=== PATIENT | male | born 1940 | race Caucasian/White ===

== ENCOUNTER 2016-12-22 06:36 | Emergency (ER) | payer MEDICARE ==
[2016-12-22] MEDS ORDERED: Ondansetron INJ* 2 MG/ML VIAL IV ONE (07:41)
[2016-12-22] MEDS ORDERED: Acetaminophen TAB* 325 MG PO ONE (07:41)
[2016-12-22] MEDS ORDERED: NS 0.9% 1000 ML* 1,000 ML IV SCH (07:45)
[2016-12-22 08:03] LABS: Hematocrit 42 % (42-52); Hemoglobin 14.2 g/dl (14.0-18.0); Mean Corpuscular HGB Conc 34 g/dl (31-36); Mean Corpuscular Hemoglobin 32 pg (27-31); Mean Corpuscular Volume 94 fL (80-94); Mean Platelet Volume 9 um3 (7.4-10.4); Red Blood Count 4.45 10^6/ul (4.0-5.4); Red Cell Distribution Width 13 % (10.5-15)
[2016-12-22 08:04] LABS: Add Diff/Slide Review? Slide Review Added; Comments Flag Yes
--- NOTE | 2016-12-22 08:13 | RAD ---
INDICATION: Headache. COMPARISON: There are no prior studies available for comparison. TECHNIQUE: Contiguous axial sections of the brain were obtained from the skull base to the vertex without contrast. FINDINGS: The ventricles, cisterns and sulci are enlarged consistent with age-related atrophy. There are very small areas of decreased density in the caudate nuclei suggestive of old lacunar infarcts. No other focal abnormality or mass effect is seen. There is no evidence for hemorrhage. No significant focal osseous abnormality is seen. The visualized portion of the paranasal sinuses and mastoid air cells appear clear. IMPRESSION: 1. NO EVIDENCE FOR ACUTE INTRACRANIAL ABNORMALITY. 2. 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
[2016-12-22 08:15] LABS: Albumin 4.1 g/dL (3.2-5.2); BUN/Creatinine Ratio 11.6 (8-20); C Reactive Protein 56.65 mg/L (< 5.00); Calcium 9.2 mg/dL (8.6-10.3); EGFR African American 81.5 (>60); EGFR Non-African American 63.4 (>60); Globulin 2.9 g/dL (2-4); Potassium 4.1 mmol/L (3.5-5.0); Total Bilirubin 0.9 mg/dL (0.2-1.0)
[2016-12-22 08:16] LABS: Troponin I 0.01 ng/mL (<0.04)
[2016-12-22 09:04] LABS: Urine Bacteria Absent (Absent); Urine Bilirubin Negative (Negative); Urine Glucose Negative (Negative); Urine Nitrite Negative (Negative)
[2016-12-22] MEDS ORDERED: Oseltamivir CAP* 75 MG PO ONE (09:48)
--- NOTE | 2016-12-22 09:48 | ED ---
I, Pascual,Bossman, scribed for Darien Sahu MD on 12/22/16 at 0751 . Complex/Multi-Sys Presentation - HPI Summary HPI Summary: This 76 y/o male presents to ED for gradually worsening abd discomfort since 2 days ago and SILVA since yesterday AM. Pt reports he was down in [place] where he consumed "awful looking Caesar salad" for dinner 2 days ago. He started to experience abd dismfort and had x2 BM that night, and woke up with SILVA and nausea the next morning. Positive decreased appetite. Pt decided to visit ED today when pt kept waking up with abd discomfort and SILVA. Abd discomfort is currently resolved at time of initial evaluation, but SILVA still persists and remains chief complaint. APAP and pepcid did little to alleviate SILVA and abd pain. Pt is UTD with flu shot this year. He also reports recent rhinorrhea and coughing, and states that he felt similarly ill to last time he had bronchitis. PMHx includes HTN, HLD, CAD s/p quadruple bypass, and PUD. Plan of care involving CT brain is discussed, and pt is agreeable at this time. Pain med options were discussed with pt, and he states that he does not taking NSAID due to his known PUD. - History Of Current Complaint Chief Complaint: EDGeneral Time Seen by Provider: 12/22/16 07:21 Hx Obtained From: Patient, Medical Records Onset/Duration: Gradual Onset, Still Present Timing: Constant Severity Currently: Mild Severity Initially: Mild Character: Dull Associated Signs And Symptoms: Positive: Nausea, Decreased Oral Intake. Negative: Vomiting, Diarrhea, Dysuria - Allergies/Home Medications Allergies/Adverse Reactions: Allergies Allergy/AdvReac Type Severity Reaction Status Date / Time Omeprazole Allergy Rash And Verified 03/09/16 07:37 Itching PMH/Surg Hx/FS Hx/Imm Hx Cardiovascular History: Reports: Hx Angina, Hx Coronary Artery Disease, Hx Hypercholesterolemia, Hx Hypertension, Hx Valvular Heart Disease - "LEAKY VALVE ", Other Cardiovascular Problems/Disorders - HIGH CHOLESTEROL Respiratory History: Reports: Hx Asthma GI History: Reports: Hx Gall Bladder Disease - pt states it was from an infection from surgery, Hx Gastrointestinal Bleed - current diagnosis, Other GI Disorders - pud History: Reports: Other Problems/Disorders - PROSTATE CA Musculoskeletal History: Reports: Hx Arthritis - bilat feet, Other Musculoskeletal History - RIGHT FOOT TRAUMA Sensory History: Reports: Hx Cataracts - Removed, Hx Contacts or Glasses Denies: Hx Glaucoma, Hx Hearing Aid Opthamlomology History: Reports: Hx Cataracts - Removed, Hx Contacts or Glasses Denies: Hx Glaucoma Neurological History: Reports: Other Neuro Impairments/Disorders - NUMBNESS LEGS BILAT r/t R FOOT SURGERY YRS AGO - Cancer History Cancer Type, Location and Year: Prostate Hx Chemotherapy: No - Surgical History Surgery Procedure, Year, and Place: 17 YRS AGO, RADICAL PROSTATECTOMY- [facility] – [place]. 1976 LEFT INGUINAL HERNIA- [facility]. 39 YRS AGO, 7 COMPOUND FX IN RIGHT FOOT, SURG X 2 WITH SKIN GRAFTS- [facility]. 2009 QUADRUPLE BYPASS- [facility] Anesthesia Reactions: No Infectious Disease History: No Infectious Disease History: Denies: Traveled Outside the US in Last 30 Days - Family History Known Family History: Positive: Other - CVA to father - Social History Occupation: Retired Alcohol Use: Rare Alcohol Amount: 2 drinks per day Hx Substance Use: No Substance Use Type: Reports: None Hx Tobacco Use: No Smoking Status (MU): Never Smoked Tobacco Review of Systems Positive: Cough Positive: Abdominal Pain, Nausea. Negative: Vomiting, Diarrhea Positive: Headache Negative: Anxious, Depressed All Other Systems Reviewed And Are Negative: Yes Physical Exam Triage Information Reviewed: Yes Vital Signs On Initial Exam: Initial Vitals Temp Pulse Resp BP Pulse Ox 99.2 F 93 18 181/81 94 12/22/16 06:43 12/22/16 06:43 12/22/16 06:43 12/22/16 06:43 12/22/16 06:43 Vital Signs Reviewed: Yes Appearance: Positive: No Pain Distress, Ill-Appearing - mildly Skin: Positive: Warm, Skin Color Reflects Adequate Perfusion, Dry Head/Face: Positive: Normal Head/Face Inspection Eyes: Positive: EOMI, DEVIN ENT: Positive: Other - moist oral mucosa Neck: Positive: Supple, Nontender Respiratory/Lung Sounds: Positive: Clear to Auscultation, Breath Sounds Present Cardiovascular: Positive: RRR, Pulses are Symmetrical in both Upper and Lower Extremities Abdomen Description: Positive: Nontender, Soft Bowel Sounds: Positive: Present Musculoskeletal: Positive: Strength/ROM Intact - MAC Neurological: Positive: Sensory/Motor Intact - MAC, Alert, Oriented to Person Place, Time Psychiatric: Positive: Affect/Mood Appropriate AVPU Assessment: Alert - Tamar Coma Scale Coma Scale Total: 15 Diagnostics - Vital Signs Vital Signs Temp Pulse Resp BP Pulse Ox 12/22/16 07:22 100.7 F 12/22/16 07:00 86 173/81 95 12/22/16 06:46 90 95 12/22/16 06:44 181/81 12/22/16 06:43 99.2 F 93 18 181/81 94 - Laboratory Lab Results: Lab Results 12/22/16 12/22/16 12/22/16 Range/Units 07:45 07:45 07:45 WBC 5.0 (3.5-10.8) 10^3/ul RBC 4.45 (4.0-5.4) 10^6/ul Hgb 14.2 (14.0-18.0) g/dl Hct 42 (42-52) % MCV 94 (80-94) fL MCH 32 H (27-31) pg MCHC 34 (31-36) g/dl RDW 13 (10.5-15) % Plt Count 93 L (150-450) 10^3/ul MPV 9 (7.4-10.4) um3 Neut % (Auto) 83.1 H (38-83) % Lymph % (Auto) 7.1 L (25-47) % [place] % (Auto) 8.3 (1-9) % Eos % (Auto) 1.1 (0-6) % Baso % (Auto) 0.4 (0-2) % Absolute Neuts (auto) 4.1 (1.5-7.7) 10^3/ul Absolute Lymphs (auto) 0.4 L (1.0-4.8) 10^3/ul Absolute Monos (auto) 0.4 (0-0.8) 10^3/ul Absolute Eos (auto) 0.1 (0-0.6) 10^3/ul Absolute Basos (auto) 0 (0-0.2) 10^3/ul Absolute Nucleated RBC 0 10^3/ul Nucleated RBC % 0 INR (Anticoag Therapy) 0.94 (0.89-1.11) APTT 30.5 (26.0-36.3) seconds Sodium 134 (133-145) mmol/L Potassium 4.1 (3.5-5.0) mmol/L Chloride 100 L (101-111) mmol/L Carbon Dioxide 30 (22-32) mmol/L Anion Gap 4 (2-11) mmol/L BUN 13 (6-24) mg/dL Creatinine 1.12 (0.67-1.17) mg/dL Est GFR ( Amer) 81.5 (>60) Est GFR (Non-Af Amer) 63.4 (>60) BUN/Creatinine Ratio 11.6 (8-20) Glucose 115 H (70-100) mg/dL Lactic Acid (0.5-2.0) mmol/L Calcium 9.2 (8.6-10.3) mg/dL Total Bilirubin 0.90 (0.2-1.0) mg/dL AST 18 (13-39) U/L ALT 18 (7-52) U/L Alkaline Phosphatase 81 (34-104) U/L Total Creatine Kinase 114 (10-223) U/L CK-MB (CK-2) 2.3 (0.6-6.3) ng/mL Troponin I 0.01 (<0.04) ng/mL C-Reactive Protein 56.65 H (< 5.00) mg/L B-Natriuretic Peptide ( - 100) pg/mL Total Protein 7.0 (6.4-8.9) g/dL Albumin 4.1 (3.2-5.2) g/dL Globulin 2.9 (2-4) g/dL Albumin/Globulin Ratio 1.4 (1-3) Lipase 19 (11.0-82.0) U/L Urine Color Urine Appearance Urine pH (5-9) Ur Specific [place] (1.010-1.030) Urine Protein (Negative) Urine Ketones (Negative) Urine Blood (Negative) Urine Nitrate (Negative) Urine Bilirubin (Negative) Urine Urobilinogen (Negative) Ur Leukocyte Esterase (Negative) Urine WBC (Auto) (Absent) Urine RBC (Auto) (Absent) Urine Bacteria (Absent) Urine Glucose (Negative) Urine Ascorbic Acid (Negative) Influenza A (Rapid) (Negative) Influenza B (Rapid) (Negative) 12/22/16 12/22/16 12/22/16 Range/Units 07:45 07:45 07:57 WBC (3.5-10.8) 10^3/ul RBC (4.0-5.4) 10^6/ul Hgb (14.0-18.0) g/dl Hct (42-52) % MCV (80-94) fL MCH (27-31) pg MCHC (31-36) g/dl RDW (10.5-15) % Plt Count (150-450) 10^3/ul MPV (7.4-10.4) um3 Neut % (Auto) (38-83) % Lymph % (Auto) (25-47) % [place] % (Auto) (1-9) % Eos % (Auto) (0-6) % Baso % (Auto) (0-2) % Absolute Neuts (auto) (1.5-7.7) 10^3/ul Absolute Lymphs (auto) (1.0-4.8) 10^3/ul Absolute Monos (auto) (0-0.8) 10^3/ul Absolute Eos (auto) (0-0.6) 10^3/ul Absolute Basos (auto) (0-0.2) 10^3/ul Absolute Nucleated RBC 10^3/ul Nucleated RBC % INR (Anticoag Therapy) (0.89-1.11) APTT (26.0-36.3) seconds Sodium (133-145) mmol/L Potassium (3.5-5.0) mmol/L Chloride (101-111) mmol/L Carbon Dioxide (22-32) mmol/L Anion Gap (2-11) mmol/L BUN (6-24) mg/dL Creatinine (0.67-1.17) mg/dL Est GFR ( Amer) (>60) Est GFR (Non-Af Amer) (>60) BUN/Creatinine Ratio (8-20) Glucose (70-100) mg/dL Lactic Acid 1.0 (0.5-2.0) mmol/L Calcium (8.6-10.3) mg/dL Total Bilirubin (0.2-1.0) mg/dL AST (13-39) U/L ALT (7-52) U/L Alkaline Phosphatase (34-104) U/L Total Creatine Kinase (10-223) U/L CK-MB (CK-2) (0.6-6.3) ng/mL Troponin I (<0.04) ng/mL C-Reactive Protein (< 5.00) mg/L B-Natriuretic Peptide 231 H ( - 100) pg/mL Total Protein (6.4-8.9) g/dL Albumin (3.2-5.2) g/dL Globulin (2-4) g/dL Albumin/Globulin Ratio (1-3) Lipase (11.0-82.0) U/L Urine Color Urine Appearance Urine pH (5-9) Ur Specific [place] (1.010-1.030) Urine Protein (Negative) Urine Ketones (Negative) Urine Blood (Negative) Urine Nitrate (Negative) Urine Bilirubin (Negative) Urine Urobilinogen (Negative) Ur Leukocyte Esterase (Negative) Urine WBC (Auto) (Absent) Urine RBC (Auto) (Absent) Urine Bacteria (Absent) Urine Glucose (Negative) Urine Ascorbic Acid (Negative) Influenza A (Rapid) Positive H (Negative) Influenza B (Rapid) Negative (Negative) 12/22/16 Range/Units 08:40 WBC (3.5-10.8) 10^3/ul RBC (4.0-5.4) 10^6/ul Hgb (14.0-18.0) g/dl Hct (42-52) % MCV (80-94) fL MCH (27-31) pg MCHC (31-36) g/dl RDW (10.5-15) % Plt Count (150-450) 10^3/ul MPV (7.4-10.4) um3 Neut % (Auto) (38-83) % Lymph % (Auto) (25-47) % [place] % (Auto) (1-9) % Eos % (Auto) (0-6) % Baso % (Auto) (0-2) % Absolute Neuts (auto) (1.5-7.7) 10^3/ul Absolute Lymphs (auto) (1.0-4.8) 10^3/ul Absolute Monos (auto) (0-0.8) 10^3/ul Absolute Eos (auto) (0-0.6) 10^3/ul Absolute Basos (auto) (0-0.2) 10^3/ul Absolute Nucleated RBC 10^3/ul Nucleated RBC % INR (Anticoag Therapy) (0.89-1.11) APTT (26.0-36.3) seconds Sodium (133-145) mmol/L Potassium (3.5-5.0) mmol/L Chloride (101-111) mmol/L Carbon Dioxide (22-32) mmol/L Anion Gap (2-11) mmol/L BUN (6-24) mg/dL Creatinine (0.67-1.17) mg/dL Est GFR ( Amer) (>60) Est GFR (Non-Af Amer) (>60) BUN/Creatinine Ratio (8-20) Glucose (70-100) mg/dL Lactic Acid (0.5-2.0) mmol/L Calcium (8.6-10.3) mg/dL Total Bilirubin (0.2-1.0) mg/dL AST (13-39) U/L ALT (7-52) U/L Alkaline Phosphatase (34-104) U/L Total Creatine Kinase (10-223) U/L CK-MB (CK-2) (0.6-6.3) ng/mL Troponin I (<0.04) ng/mL C-Reactive Protein (< 5.00) mg/L B-Natriuretic Peptide ( - 100) pg/mL Total Protein (6.4-8.9) g/dL Albumin (3.2-5.2) g/dL Globulin (2-4) g/dL Albumin/Globulin Ratio (1-3) Lipase (11.0-82.0) U/L Urine Color Yellow Urine Appearance Clear Urine pH 8.0 (5-9) Ur Specific [place] 1.012 (1.010-1.030) Urine Protein 1+(30 mg/dl) H (Negative) Urine Ketones Trace H (Negative) Urine Blood Negative (Negative) Urine Nitrate Negative (Negative) Urine Bilirubin Negative (Negative) Urine Urobilinogen Negative (Negative) Ur Leukocyte Esterase Negative (Negative) Urine WBC (Auto) Absent (Absent) Urine RBC (Auto) Absent (Absent) Urine Bacteria Absent (Absent) Urine Glucose Negative (Negative) Urine Ascorbic Acid * H (Negative) Influenza A (Rapid) (Negative) Influenza B (Rapid) (Negative) Result Diagrams: 12/22/16 07:45 12/22/16 07:45 Lab Statement: Any lab studies that have been ordered have been reviewed, and results considered in the medical decision making process. - CT Brain CT Interpretation: No Acute Changes - 1. NO EVIDENCE FOR ACUTE INTRACRANIAL ABNORMALITY. 2. 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 CT Interpretation Completed By: Radiologist - Additional Comments Diagnostic Additional Comments: Positive rapid influenza A. Re-Evaluation - Re-Evaluation First Eval Re-Evaluation Time: 09:41 Comment: MD in room to update pt and on rapid flu, bloodwork, and CXR. Complex Multi-Symp Course/Dx Assessment/Plan: WELL IN ED. DISCUSSED RESULTS WITH PATIENT/FAMILY. DISCHARGE HOME STABLE. - Diagnoses Provider Diagnoses: Influenza A Discharge - Discharge Plan Condition: Stable Disposition: HOME Prescriptions: Ondansetron ODT TAB* [Zofran Odt TAB*] 4 mg PO Q6H PRN #10 tab.odt PRN Reason: Nausea Oseltamivir CAP* [Tamiflu CAP*] 75 mg PO BID #9 cap Patient Education Materials: Influenza (ED), Oseltamivir (By mouth), Acetaminophen (By mouth) Referrals: José Miguel Kaufman MD [Primary Care Provider] - Additional Instructions: FOLLOW UP WITH YOUR DOCTOR. RETURN TO THE EMERGENCY DEPARTMENT FOR ANY WORSENING OF YOUR CONDITION OR QUESTIONS OR CONCERNS. The documentation as recorded by the Pascual connell Soohyun accurately reflects the service I personally performed and the decisions made by me, Darien Sahu MD.
[2016-12-22 10:06] VITALS: BP 137/66
== END 2016-12-22 10:14 | disposition home or self-care (01) ==
LOC: ED 06:36
DX: J11.1 Influenza due to unidentified influenza virus with other respiratory manifestations (principal); R11.0 Nausea; R05 Cough; R51 Headache; R10.9 Unspecified abdominal pain
CPT/HCPCS: 36415; 70450; 80053; 81003; 81015; 82550; 82553; 83605; 83690; 83880; 84484; 85025; 85610; 85730; 86140; 87502; 96374; 99283; A9270-GY; J2405

== ENCOUNTER → 2017-03-16 17:13 | Emergency (ER) | payer MEDICARE ==
[2017-03-16 17:30] VITALS: BP 156/87
--- NOTE | 2017-03-16 19:39 | ED ---
Lower Extremity - HPI Summary HPI Summary: Pt here w/ possible bug bite to Rt inner ankle/calf area. Was initially a little itchy - today, red/purple - nonpainful. Believes he was bitten while walking ion tall grass - no witnessed bite nor insect attached to area. Tetanus is UTD. Takes an ASA daily but not as much lately d/t PUD - no issues w/ bleeding/bruising. Denies numbness, tingling, weakness here. No EM rash observed and denies fever, chills, N/V/D, SILVA, chest pain/palpitations, SOB, joint pain. - History of Current Complaint Chief Complaint: EDRashSkinAbscess Stated Complaint: SOME KIND OF BUG BITE Time Seen by Provider: 03/16/17 17:42 Hx Obtained From: Patient, Family/Manager Cafe - female manager access Pain Intensity: 0 Pain Scale Used: 0-10 Numeric - Allergies/Home Medications Allergies/Adverse Reactions: Allergies Allergy/AdvReac Type Severity Reaction Status Date / Time Omeprazole Allergy Rash And Verified 03/09/16 07:37 Itching PMH/Surg Hx/FS Hx/Imm Hx Previously Healthy: Yes Endocrine/Hematology History: Denies: Hx Anticoagulant Therapy - ASA daily, Hx Blood Disorders Cardiovascular History: Reports: Hx Angina, Hx Coronary Artery Disease, Hx Hypercholesterolemia, Hx Hypertension, Hx Valvular Heart Disease - "LEAKY VALVE ", Other Cardiovascular Problems/Disorders - HIGH CHOLESTEROL Respiratory History: Reports: Hx Asthma GI History: Reports: Hx Gall Bladder Disease - pt states it was from an infection from surgery, Hx Gastrointestinal Bleed - current diagnosis, Other GI Disorders - pud History: Reports: Other Problems/Disorders - PROSTATE CA Musculoskeletal History: Reports: Hx Arthritis - bilat feet, Other Musculoskeletal History - RIGHT FOOT TRAUMA Sensory History: Reports: Hx Cataracts - Removed, Hx Contacts or Glasses Denies: Hx Glaucoma, Hx Hearing Aid Opthamlomology History: Reports: Hx Cataracts - Removed, Hx Contacts or Glasses Denies: Hx Glaucoma Neurological History: Reports: Other Neuro Impairments/Disorders - NUMBNESS LEGS BILAT 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 1976 LEFT INGUINAL HERNIA- [facility]. 39 YRS AGO, 7 COMPOUND FX IN RIGHT FOOT, SURG X 2 WITH SKIN GRAFTS- [facility]. 2010 QUADRUPLE BYPASS- [place] Hx Anesthesia Reactions: No Infectious Disease History: No Infectious Disease History: Denies: Traveled Outside the [place] in Last 30 Days - Family History Known Family History: Positive: None, Other - CVA to father - Social History Lives: With Family Alcohol Use: Daily Alcohol Amount: 2 drinks per day Hx Substance Use: No Substance Use Type: Reports: None Hx Tobacco Use: No Smoking Status (MU): Former Smoker Review of Systems Constitutional: Negative Negative: Fever, Chills Cardiovascular: Negative Negative: Palpitations Respiratory: Negative Gastrointestinal: Negative Positive: no symptoms reported Musculoskeletal: Negative Skin: Other - see HPI Neurological: Negative Psychological: Normal All Other Systems Reviewed And Are Negative: Yes Physical Exam Triage Information Reviewed: Yes Vital Signs On Initial Exam: Initial Vitals Temp Pulse Resp BP Pulse Ox 98.4 F 74 18 156/87 97 03/16/17 17:27 03/16/17 17:27 03/16/17 17:27 03/16/17 17:27 03/16/17 17:27 Vital Signs Reviewed: Yes Appearance: Positive: Well-Appearing, No Pain Distress, Well-Nourished Skin: Positive: Warm, Dry - 3cm area of macular purpura w/ central induration about 1cm in diameter - very center of skin abnormality is w/ 3mm raised papule w/ central pinpoint darkness (possibly entry wound/bite guru) - peripheral tissue is some what less purple and then dark again just beyond this - not a abdoulaye EM rash but could be early development? No abdoulaye ulceration, eschar, oozing, drainage or fluctuance - NTTP Head/Face: Positive: Normal Head/Face Inspection Eyes: Positive: Normal ENT: Positive: Hearing grossly normal Respiratory/Lung Sounds: Positive: Breath Sounds Present Cardiovascular: Positive: Normal, Pulses are Symmetrical in both Upper and Lower Extremities. Negative: Leg Edema Left, Leg Edema Right Musculoskeletal: Positive: Normal, Strength/ROM Intact Neurological: Positive: Normal, Sensory/Motor Intact, Alert, Oriented to Person Place, Time, CN Intact II-III Psychiatric: Positive: Normal Diagnostics - Vital Signs Vital Signs Temp Pulse Resp BP Pulse Ox 03/16/17 17:27 98.4 F 74 18 156/87 97 - Laboratory Lab Statement: Any lab studies that have been ordered have been reviewed, and results considered in the medical decision making process. Lower Extremity Course/Dx - Course Course Of Treatment: Discussed this abnormal skin discoloration could have been an insect bite. Of an insect bite, most dangerous scenarios would be a tick carrying Lyme or a brown recluse spider. He will start doxycycline to cover for Lyme and f/u w/ PCP. Discussed importance of monitoring wound for abdoulaye EM rash or evolution into a brown recluse spider bite and advised to seek medical attention immediately if either of these present. May also take pictures to document. Pt and were an active part of this plan and agree. - Diagnoses Provider Diagnoses: Rash Discharge - Discharge Plan Condition: Stable Disposition: HOME Prescriptions: DOXYcycline CAP(*) [DOXYcycline 100MG CAP(*)] 100 mg PO BID #20 cap Patient Education Materials: Lyme Disease (ED), Acute Rash (ED) Referrals: José Miguel Kaufman MD [Primary Care Provider] - Additional Instructions: You have a rash today that may possibly be from a tick bite and early signs of bulls eye rash (aka erythema migrans rash). Start antibiotics and follow-up with your PCP early next week. Call Saturday to schedule an appointment. *If you develop an obvious bulls eye rash over the weekend, return to a medical facility for documentation and/or take a picture to show PCP next week *If you develop skin breakdown, oozing, black skin here, this may be a brown recluse spider bite. Again, follow-up with a medical facility if this occurs.
== END | disposition home or self-care (01) ==
LOC: ED 17:13
DX: R21 Rash and other nonspecific skin eruption (principal); I25.119 Atherosclerotic heart disease of native coronary artery with unspecified angina pectoris; I10 Essential (primary) hypertension; E78.00 Pure hypercholesterolemia, unspecified; Z87.891 Personal history of nicotine dependence
CPT/HCPCS: 99281

== ENCOUNTER 2017-04-06 19:35 | Inpatient (IN) | payer MEDICARE ==
[2017-04-06] MEDS ORDERED: NS 0.9% 1000 ML* 1,000 ML IV ONE (20:06)
[2017-04-06] MEDS ORDERED: Ondansetron INJ* 2 MG/ML VIAL IV ONE (20:07)
[2017-04-06] MEDS ORDERED: Morphine INJ* 4 MG/ML 1 ML SYRINGE IV ONE (20:07)
[2017-04-06 20:23] LABS: Hematocrit 42 % (42-52); Hemoglobin 13.9 g/dl (14.0-18.0); Mean Corpuscular HGB Conc 33 g/dl (31-36); Mean Corpuscular Hemoglobin 31 pg (27-31); Mean Corpuscular Volume 94 fL (80-94); Mean Platelet Volume 9 um3 (7.4-10.4); Red Blood Count 4.48 10^6/ul (4.0-5.4); Red Cell Distribution Width 13 % (10.5-15); White Blood Count 4.6 10^3/ul (3.5-10.8)
[2017-04-06 20:38] LABS: Albumin 4.2 g/dL (3.2-5.2); BUN/Creatinine Ratio 19.1 (8-20); C Reactive Protein 1.68 mg/L (< 5.00); Calcium 9.3 mg/dL (8.6-10.3); EGFR African American 83.3 (>60); EGFR Non-African American 64.7 (>60); Globulin 2.6 g/dL (2-4); Magnesium 2.2 mg/dL (1.9-2.7); Potassium 4.5 mmol/L (3.5-5.0); Total Bilirubin 2.6 mg/dL (0.2-1.0); Total Protein 6.8 g/dL (6.4-8.9)
[2017-04-06] MEDS ORDERED: Iohexol 300* (CONTRAST) 10 ML SDV IV ONE (20:56)
--- NOTE | 2017-04-06 22:11 | RAD ---
HISTORY: Epigastric pain with elevated LFTs. COMPARISONS: None TECHNIQUE: Multiple transverse and longitudinal ultrasound images were obtained of the right upper quadrant. FINDINGS: LIVER: The liver is normal in dimensions and echogenicity. Normal hepatic and portal venous blood flow is duplicated with color flow imaging. There is no gross intrahepatic biliary duct dilatation. GALLBLADDER AND EXTRAHEPATIC BILIARY DUCT: There are shadowing echogenic stones at the gallbladder neck. The gallbladder wall is top normal in thickness measuring 3 mm. There is trace pericholecystic fluid. The common bile duct measures a maximum diameter of 9 mm. PANCREAS: Overlying bowel gas prevents adequate imaging of the pancreas. RIGHT KIDNEY: The right kidney is normal in size, morphology and echogenicity. IMPRESSION: CHOLELITHIASIS WITH A MILDLY DILATED COMMON BILE DUCT AND TRACE PERICHOLECYSTIC FLUID. IN THE CORRECT CLINICAL SETTING THESE SONOGRAPHIC FEATURES COULD BE COMPATIBLE WITH EARLY OBSTRUCTIVE CHOLECYSTITIS. IF CLINICALLY WARRANTED FURTHER CHARACTERIZATION CAN BE ACQUIRED WITH HIDA SCAN.
--- NOTE | 2017-04-06 23:09 | ED ---
Ollie Yuan Aidan, scribed for Lucy Noble MD on 04/06/17 at 2050 . Abdominal Pain/Male - HPI Summary HPI Summary: 76 y/o male presents to the ED with a complaint of acute, [id number] ( at times reaching 9/10), epigastric pain that has persisted intermittently for the past 3 days. This morning, he woke up with an episode of pain that persisted for roughly 6 hours. The pain is described as a similar pain to what he experiences when he has reflux. Currently, he is asymptomatic. Pt denies any vomiting, nausea, diarrhea, constipation, CP, or SOB. He also denies being on any blood thinners. Hx of peptic ulcer bleed without associated pain, HTN, reflux, quadruple bypass 6 years ago, hyperlipidemia, and prostate CA. - History of Current Complaint Chief Complaint: EDAbdPain Stated Complaint: UPPER ABD PAIN Time Seen by Provider: 04/06/17 19:46 Hx Obtained From: Patient Onset/Duration: Sudden Onset, Lasting Hours - one of his episodes today lasted 6 hours, Resolved - Pt is currently asymptomatic Timing: Intermittent, Lasting Hours Severity Initially: Severe Severity Currently: Mild Pain Intensity: 0 - Currently the patient is not in much pain, however, his abdominal pain can reach 9/10 Pain Scale Used: 0-10 Numeric Location: Epigastric Radiates: No Character: Sharp Aggravating Factor(s): Other: - unknown Alleviating Factor(s): Other: - unknown Associated Signs And Symptoms: Positive: Negative - Allergies/Home Medications Allergies/Adverse Reactions: Allergies Allergy/AdvReac Type Severity Reaction Status Date / Time Omeprazole Allergy Rash And Verified 03/09/16 07:37 Itching PMH/Surg Hx/FS Hx/Imm Hx Previously Healthy: No - Hx of Prostste CA, reflux Endocrine/Hematology History: Denies: Hx Anticoagulant Therapy - ASA daily, Hx Blood Disorders Cardiovascular History: Reports: Hx Angina, Hx Coronary Artery Disease, Hx Hypercholesterolemia, Hx Hypertension, Hx Valvular Heart Disease - "LEAKY VALVE ", Other Cardiovascular Problems/Disorders - HIGH CHOLESTEROL Respiratory History: Reports: Hx Asthma GI History: Reports: Hx Gall Bladder Disease - pt states it was from an infection from surgery, Hx Gastrointestinal Bleed - current diagnosis, Other GI Disorders - pud History: Reports: Other Problems/Disorders - PROSTATE CA Musculoskeletal History: Reports: Hx Arthritis - bilat feet, Other Musculoskeletal History - RIGHT FOOT TRAUMA Sensory History: Reports: Hx Cataracts - Removed, Hx Contacts or Glasses Denies: Hx Glaucoma, Hx Hearing Aid Opthamlomology History: Reports: Hx Cataracts - Removed, Hx Contacts or Glasses Denies: Hx Glaucoma Neurological History: Reports: Other Neuro Impairments/Disorders - NUMBNESS LEGS BILAT r/t R FOOT SURGERY YRS AGO - Cancer History Cancer Type, Location and Year: Prostate Hx Chemotherapy: No - Surgical History Surgery Procedure, Year, and Place: 17 YRS AGO, RADICAL PROSTATECTOMY- [facility] – [place]. 1976 LEFT INGUINAL HERNIA- [facility]. 39 YRS AGO, 7 COMPOUND FX IN RIGHT FOOT, SURG X 2 WITH SKIN GRAFTS- [facility]. 2009 QUADRUPLE BYPASS- [facility] Anesthesia Reactions: No Infectious Disease History: No Infectious Disease History: Denies: Traveled Outside the [place] in Last 30 Days - Family History Known Family History: Positive: Cardiac Disease, Hypertension, Other - CVA to father - Social History Occupation: Retired Lives: With Family Alcohol Use: Daily Alcohol Amount: 2 drinks per day Hx Substance Use: No Substance Use Type: Reports: None Hx Tobacco Use: No Smoking Status (MU): Former Smoker Review of Systems Constitutional: Negative Eyes: Negative ENT: Negative Cardiovascular: Negative Respiratory: Negative Positive: Abdominal Pain. Negative: Vomiting, Diarrhea, Nausea Genitourinary: Negative Musculoskeletal: Negative Skin: Negative Neurological: Negative Psychological: Normal All Other Systems Reviewed And Are Negative: Yes Physical Exam - Summary Physical Exam Summary: General: Well appearing, no pain distress Skin: Warm, Skin Color Reflects Adequate Perfusion, Dry Eyes: EOMI, DEVIN ENT: Pharynx normal, TMs normal Neck: Supple, nontender Respiratory: CTA, breath sounds present, no rhonchi, no wheezes, no rales Cardiovascular: RRR, no murmur, no rub, no gallop Abdomen: Soft, Non-distended, no guarding, no rebound; POSITIVE: RUQ and epigastric tenderness Bowel: Present Musculoskeletal: ARIC, No edema Neuro: Sensory/motor intact, A&Ox3, CN intact 2-12 Psych: Affect/mood appropriate Triage Information Reviewed: Yes Vital Signs On Initial Exam: Initial Vitals Temp Pulse Resp BP Pulse Ox 97.3 F 66 18 168/88 100 04/06/17 19:35 04/06/17 19:35 04/06/17 19:35 04/06/17 19:35 04/06/17 19:35 Vital Signs Reviewed: Yes - [place] Coma Scale Coma Scale Total: 15 Diagnostics - Vital Signs Vital Signs Temp Pulse Resp BP Pulse Ox 04/06/17 20:31 16 04/06/17 20:18 97.3 F 58 16 177/91 98 04/06/17 19:35 97.3 F 66 18 168/88 100 - Laboratory Lab Results: Lab Results 04/06/17 04/06/17 04/06/17 Range/Units 20:14 20:14 20:14 WBC 4.6 (3.5-10.8) 10^3/ul RBC 4.48 (4.0-5.4) 10^6/ul Hgb 13.9 L (14.0-18.0) g/dl Hct 42 (42-52) % MCV 94 (80-94) fL MCH 31 (27-31) pg MCHC 33 (31-36) g/dl RDW 13 (10.5-15) % Plt Count 126 L (150-450) 10^3/ul MPV 9 (7.4-10.4) um3 Neut % (Auto) 63.4 (38-83) % Lymph % (Auto) 22.8 L (25-47) % [place] % (Auto) 7.3 (1-9) % Eos % (Auto) 6.1 H (0-6) % Baso % (Auto) 0.4 (0-2) % Absolute Neuts (auto) 2.9 (1.5-7.7) 10^3/ul Absolute Lymphs (auto) 1.0 (1.0-4.8) 10^3/ul Absolute Monos (auto) 0.3 (0-0.8) 10^3/ul Absolute Eos (auto) 0.3 (0-0.6) 10^3/ul Absolute Basos (auto) 0 (0-0.2) 10^3/ul Absolute Nucleated RBC 0 10^3/ul Nucleated RBC % 0.1 Sodium 138 (133-145) mmol/L Potassium 4.5 (3.5-5.0) mmol/L Chloride 105 (101-111) mmol/L Carbon Dioxide 29 (22-32) mmol/L Anion Gap 4 (2-11) mmol/L BUN 21 (6-24) mg/dL Creatinine 1.10 (0.67-1.17) mg/dL Est GFR ( Amer) 83.3 (>60) Est GFR (Non-Af Amer) 64.7 (>60) BUN/Creatinine Ratio 19.1 (8-20) Glucose 93 (70-100) mg/dL Lactic Acid 0.9 (0.5-2.0) mmol/L Calcium 9.3 (8.6-10.3) mg/dL Magnesium 2.2 (1.9-2.7) mg/dL Total Bilirubin 2.60 H (0.2-1.0) mg/dL AST 683 H (13-39) U/L ALT Pending Alkaline Phosphatase 178 H (34-104) U/L Troponin I 0.00 (<0.04) ng/mL C-Reactive Protein 1.68 (< 5.00) mg/L Total Protein 6.8 (6.4-8.9) g/dL Albumin 4.2 (3.2-5.2) g/dL Globulin 2.6 (2-4) g/dL Albumin/Globulin Ratio 1.6 (1-3) Amylase 40 (29-103) U/L Lipase 41 (11.0-82.0) U/L Result Diagrams: 04/06/17 20:14 04/06/17 20:14 Lab Statement: Any lab studies that have been ordered have been reviewed, and results considered in the medical decision making process. - EKG EKG 2011 Cardiac Rate: NL - 61 BPM EKG Rhythm: Sinus Rhythm EKG Interpretation: NONSPECIFIC T-WAVE CHANGES, SAME EKG ON 03/09/16 Abdominal Pain Fem Course/Dx - Course Course Of Treatment: 76 yo male with likely common bile duct stone, case discussed with Seven Richey and with Tobias who felt given a normal wbc he could wait to have an ercp in house on Saturday when Dr. Escoto was available to do the procedure. Pt is actually quite well appearing and has no pain at this time - Diagnoses Provider Diagnoses: Common bile duct stone Discharge - Discharge Plan Condition: Stable Disposition: ADMITTED TO [facility] The documentation as recorded by the Ollie connell Aidan accurately reflects the service I personally performed and the decisions made by , Lucy Noble MD.
[2017-04-07] MEDS ORDERED: Ondansetron INJ* 2 MG/ML VIAL IV PRN (00:05)
[2017-04-07] MEDS ORDERED: Acetaminophen TAB* 325 MG PO PRN (00:08)
[2017-04-07] MEDS ORDERED: Thiamine IV* 100 MG/ML 2 ML VIAL IM ONE (00:08)
[2017-04-07] MEDS ORDERED: Senna TAB PO PRN (00:10)
[2017-04-07] MEDS ORDERED: Docusate CAP* 100 MG PO PRN (00:10)
[2017-04-07] MEDS ORDERED: Zosyn per Pharmacy* NOTE FOLLOW UP SCH (01:00)
[2017-04-07] MEDS ORDERED: LORazepam INJ* 2 MG/ML 1 ML VIAL IV SCH (01:00)
--- NOTE | 2017-04-07 02:08 | HP ---
HISTORY AND PHYSICAL: ADDENDUM: ASSESSMENT AND PLAN: Early obstructive cholecystitis. As mentioned, we will follow up with GI in the morning and repeat his labs and continue him on antibiotics. Chronic medical problems. The patient did not have his medications list. I will recommend nurse call the pharmacy in the morning to get his med rec. We will continue him on his famotidine and metoprolol. FEN. Placed him on IV fluids with sips of clear. DVT prophylaxis. The patient scores high risk. Placed him on heparin subcu t.i.d. Code status: Full code. PATIENT TIME: Greater than 70 minutes were spent doing the history and physical , more than half the time was spent in patient contact. [id number]/[facility] #: [id number] AN
[2017-04-07] MEDS: ZOSYN 3.375 GM Q8H per EXTENDED INFUSION IVPB SCH ×6 (03:51→19:30)
[2017-04-07] MEDS: Heparin VIAL(*) 5000 UNITS/ML VIAL (FIVE THOUSAND) SUBCUT SCH ×3 (05:55→22:09)
--- NOTE | 2017-04-07 06:08 | HP ---
CC: José Miguel Kaufman MD HISTORY AND PHYSICAL: DATE OF ADMISSION: 04/07/17 TIME OF EVALUATION: 0000. PRIMARY CARE PHYSICIAN: José Miguel Kaufman MD CHIEF COMPLAINT: Epigastric abdominal pain. HISTORY OF PRESENT ILLNESS: This is a 76-year-old male with a past medical history of peptic ulcer disease and alcohol use, who presents to the emergency room with worsening persistent abdominal pain. The patient states he has had ongoing intermittent epigastric pains for a while that waxes and wanes. His pain has gotten worse over the past 3 days. Last evening, his pain was bad, he started driving here to the emergency room and on the way here, it got better, he turned around and came home. Today, his epigastric pain was not improved. He has some nausea, no vomiting. He felt warm today. No diarrhea or constipation. He has had decreased appetite over the past 3 days. He denies any chest pain or shortness of breath. In the emergency room, the patient had labs, imaging, and there was findings concerning of early acute possibly obstructive cholecystitis. The patient does admit to drinking alcohol. He says he has 2 drinks per day and couple of times a week he goes up to 3 to 4 glasses per day. He states he is very active. He does 200 steps a day. Otherwise, remaining review of systems is negative. In the emergency room, the patient had labs, imaging. He was given 1 liter of normal saline, morphine 4 mg and Zofran and referred to the hospitalist service for further evaluation. On my encounter, the patient is no longer having any pain. He states he feels great. As mentioned, the patient felt that this pain was likely secondary to his peptic ulcer disease, which he states flares up off and on, waxing and waning without any specific pattern. PAST MEDICAL HISTORY: 1. Peptic ulcer disease. 2. History of coronary artery disease, status post bypass in 2010. 3. History of prostate cancer, status post prostatectomy. 4. History of GI bleed. 5. Hypertension. 6. Hyperlipidemia. 7. Arthritis. MEDICATIONS: The patient does not have the list with him, his took his wallet home. He states he no longer takes omeprazole. He was switched to Pepcid. ALLERGIES: As mentioned, OMEPRAZOLE, rash and itching. FAMILY HISTORY: Father from CVA. SOCIAL HISTORY: The patient lives at home with his . He has 4 grown stepchildren. His , Celestina Vick, is his healthcare proxy. He quit smoking 48 years ago. He has been drinking for 50 years, as mentioned, 2 to 4 glasses of alcohol per day. CODE STATUS: Full code. REVIEW OF SYSTEMS: As mentioned in the HPI. PHYSICAL EXAMINATION GENERAL: No acute distress, resting comfortably. VITAL SIGNS: Temp is 97.3, pulse rate 58, respiratory rate 17, oxygen saturation 95% on room air, blood pressure 129/75. HEENT: Pupils are equal and reactive. Anicteric. Head: Normocephalic. Oropharynx: Mucous membranes are moist. No erythema or exudate. NECK: Supple. No lymphadenopathy. RESPIRATORY: Clear to auscultation. No wheezing, rhonchi, or rales. CARDIAC: Regular rate and rhythm. Systolic murmur heard most prominent at the right sternal base. ABDOMEN: Normal bowel sounds, soft, nontender, nondistended. EXTREMITIES: No clubbing, cyanosis, or edema. NEUROLOGIC: Alert and oriented x3. No focal neurologic deficits. DIAGNOSTIC STUDIES/LAB DATA: White count 4.6, hemoglobin 13.9, hematocrit 42, platelets 126. Sodium 138, potassium 4.5, chloride 105, bicarb 29, BUN 21, creatinine 1.10. Lactic acid 0.9. Total bilirubin 2.6, AST 683, ALT 616, alk phos 178. Troponin 0. CRP 1.68. Radiographic data: Gallbladder ultrasound shows cholelithiasis and mildly dilated common bile duct and trace pericholecystic fluid. In the clinical setting, these sonographic features could be compatible with early obstructive cholecystitis. EKG shows normal sinus rhythm with prolonged IA interval, nonspecific ST findings. ASSESSMENT: This is a 76-year-old male with a past medical history of peptic ulcer disease, alcohol use, who presents to the emergency room with persistent worsening epigastric pain, found to have radiographic findings of early obstructive cholecystitis. 1. Epigastric pain. Assessment: Findings with his elevated LFTs and early obstructive cholecystitis, Dr. Collado is on-call, who recommended over an admission and if necessary Dr. Escoto can do an ERCP on the . We will start him on Zosyn and place him on n.p.o. with sips of clears. Repeat labs in AM and follow up with GI Chronic medical problems. The patient did not have his medications list. I will recommend nurse call the pharmacy in the morning to get his med rec. We will continue him on his famotidine and metoprolol. FEN. Placed him on IV fluids with sips of clear. DVT prophylaxis. The patient scores high risk. Placed him on heparin subcu t.i.d. Code status: Full code. PATIENT TIME: Greater than 70 minutes were spent doing the history and physical , more than half the time was spent in patient contact. [id number]/[facility] #: [id number] MTDD
[2017-04-07] MEDS: Thiamine TAB* 100 MG TAB PO SCH (08:21)
[2017-04-07] MEDS: Folic Acid TAB* 1 MG PO SCH (08:21)
[2017-04-07] MEDS: Famotidine TAB* 20 MG PO SCH ×2 (08:21→21:03)
[2017-04-07] MEDS: Multivitamins/Minerals TAB PO SCH (08:21)
[2017-04-07] MEDS: Metoprolol Succinate XL TAB* 25 MG PO SCH (08:22)
[2017-04-07 08:37] LABS: Hematocrit 38 % (42-52); Hemoglobin 12.7 g/dl (14.0-18.0); Mean Corpuscular HGB Conc 34 g/dl (31-36); Mean Corpuscular Hemoglobin 32 pg (27-31); Mean Corpuscular Volume 94 fL (80-94); Mean Platelet Volume 10 um3 (7.4-10.4); Red Blood Count 4.01 10^6/ul (4.0-5.4); Red Cell Distribution Width 13 % (10.5-15); White Blood Count 3.6 10^3/ul (3.5-10.8)
[2017-04-07] MEDS: Morphine INJ* 2 MG/ML 1 ML SYRINGE IV PRN (08:38)
[2017-04-07 08:55] LABS: Albumin 3.5 g/dL (3.2-5.2); Calcium 8.5 mg/dL (8.6-10.3); EGFR African American 92.9 (>60); EGFR Non-African American 72.3 (>60); Globulin 2.4 g/dL (2-4); Total Bilirubin 3.7 mg/dL (0.2-1.0); Total Protein 5.9 g/dL (6.4-8.9)
--- NOTE | 2017-04-07 12:30 | CONS ---
CC: Dr. José Miguel Kaufman * CONSULTATION REPORT: DATE OF CONSULT: 04/07/17 REASON FOR CONSULTATION: Epigastric pain, abnormal liver function tests. NARRATIVE: This is a 76-year-old gentleman presenting with epigastric pain radiating to both flanks intermittently for the last 4 weeks. He first noticed this about a month ago, was self-limited, but has recurred through the last month intermittently. He had a more significant attack in the last couple of days that was unrelenting and for that reason, presented to the emergency room. He appeared hemodynamically stable. His pain was controlled with morphine, and he proceeded to get studies including laboratory studies demonstrating a total bilirubin of 2.6, an ALT of 616, an AST of 683, a lipase of 41. He did undergo imaging with a gallbladder ultrasound, which did demonstrate cholelithiasis with a trace of pericholecystic fluid. The gallbladder was 3 mm and the common bile duct was slightly dilated at 9 mm. He was admitted overnight. His pain has been well controlled with intermittent use of morphine. His followup laboratory data this morning demonstrated a rise in his bilirubin to 3.7, but a reduction in his ALT to 515 and his AST to 404. He has not demonstrated any fevers and has been covered with Zosyn. He has no prior history of gallbladder disease, but does have a GI history consistent with peptic ulcer disease from a year ago requiring an upper endoscopy. He has been maintained on Pepcid since then. PAST MEDICAL HISTORY: Includes coronary artery disease status post bypass surgery about 6 years ago, history of prostate cancer status post prostatectomy , hypertension, hyperlipidemia, arthritis, and valvular heart disease that is being monitored. MEDICATIONS: His ambulatory medicines are: 1. Baby aspirin. 2. Pepcid. 3. Lasix. 4. Lisinopril. 5. Metoprolol. 6. Amlodipine. FAMILY HISTORY: Negative for gallbladder disease. HABITS: The patient does describe chronic regular alcohol consumption, usually 2 glasses of wine at night and at times more, and sometimes hard liquor such as scotch. REVIEW OF SYSTEMS: He denies any jaundice, pruritus, fevers, or chills. He has had no GI bleeding or weight loss. PHYSICAL EXAM: He is a pleasant gentleman, appearing comfortable in no acute distress. Temperature is 97.5, blood pressure 168/75, heart rate 51 and regular. He is anicteric. Lungs are clear. Cardiac exam reveals a regular rhythm with a systolic murmur. Abdomen is soft without any tenderness currently , rebound or guarding. There is no organomegaly or Saini sign. Bowel sounds are hypoactive but present. LABORATORY DATA: Additional data includes creatinine of 1, lactic acid of 0.9, white count of 3.6, hemoglobin of 12.7. IMPRESSION: This is a 76-year-old gentleman with history of coronary artery disease status post by pass surgery, chronic regular alcohol consumption, as well as a remote history of peptic ulcer disease, presenting with intermittent epigastric pain and abnormal liver function tests. His imaging does demonstrate cholelithiasis, perhaps acute cholecystitis or common bile duct stone. We discussed these possible causes for his pain carefully. I will proceed with an MRCP tomorrow morning to document if there is any evidence of choledocholithiasis. If that demonstrates common bile duct stone and/or his bilirubin continues to rise, then I do believe an ERCP would be the next step and that was discussed with him as well. If not, he likely could proceed with a laparoscopic cholecystectomy. Clear liquids should be continued as well as the Zosyn. I wrote for the MRCP, as well as a repeat liver panel in the morning. [id number]/[facility] #: [id number] [facility]IT[facility]
--- NOTE | 2017-04-07 14:28 | PN ---
Subjective Date of Service: 04/07/17 Interval History: Pt has no pain since he was tx with IV morphine. Seen by Dr. Collado today Objective Active Medications: Acetaminophen (Tylenol Tab*) 650 mg PO Q4H PRN PRN Reason: PAIN Docusate Sodium (Colace Cap*) 100 mg PO BID PRN PRN Reason: CONSTIPATION Famotidine (Pepcid Tab*) 20 mg PO BID [facility] Last Admin: 04/07/17 08:21 Dose: 20 mg Folic Acid (Folvite Tab*) 1 mg PO DAILY [facility] Last Admin: 04/07/17 08:21 Dose: 1 mg Heparin Sodium (Porcine) (Heparin Vial(*)) 5,000 units SUBCUT Q8HR [facility] Last Admin: 04/07/17 05:55 Dose: 5,000 units Sodium Chloride (Ns 0.9% 1000 Ml*) 1,000 mls @ 125 mls/hr IV PER RATE [facility] Piperacillin Sod/Tazobactam (Sod 3.375 gm/ Sodium Chloride) 100 mls @ 25 mls/ hr IVPB Q8H [facility] Last Admin: 04/07/17 12:50 Dose: 25 mls/hr Lorazepam (Ativan Inj*) 0 mg IV .PER WAM SCORE [facility] PRN Reason: Protocol Metoprolol Succinate (Toprol Xl Tab*) 25 mg PO DAILY [facility] Last Admin: 04/07/17 08:22 Dose: 25 mg Morphine Sulfate (Morphine Inj (Syringe)*) 2 mg IV Q4H PRN PRN Reason: PAIN Last Admin: 04/07/17 08:38 Dose: 2 mg Multivitamins/Minerals (Theragran/Minerals Tab*) 1 tab PO DAILY [facility] Last Admin: 04/07/17 08:21 Dose: 1 tab Ondansetron HCl (Zofran Inj*) 4 mg IV Q4H PRN PRN Reason: NAUSEA/VOMITING Pharmacy Consult (Zosyn Per Pharmacy*) 1 note FOLLOW UP .ZOSYN PER PHARMACY [facility] Senna (Senokot Tab*) 1 tab PO BEDTIME PRN PRN Reason: CONSTIPATION Thiamine HCl (Vitamin B-1 Tab*) 100 mg PO DAILY [facility] Last Admin: 04/07/17 08:21 Dose: 100 mg Vital Signs 04/07/17 04/07/17 04/07/17 00:29 01:00 01:14 Temperature 98 F 97.6 F Pulse Rate 54 61 Respiratory 16 15 16 Rate Blood Pressure 179/75 187/80 (mmHg) O2 Sat by Pulse 95 Oximetry 04/07/17 04/07/17 04/07/17 03:48 07:29 08:25 Temperature 97.6 F 97.5 F Pulse Rate 52 51 Respiratory 16 16 16 Rate Blood Pressure 140/66 168/75 (mmHg) O2 Sat by Pulse 100 97 Oximetry 04/07/17 04/07/17 04/07/17 08:38 09:38 10:09 Temperature 97.7 F Pulse Rate 50 Respiratory 16 16 16 Rate Blood Pressure 141/66 (mmHg) O2 Sat by Pulse 98 Oximetry 04/07/17 12:03 Temperature 97.5 F Pulse Rate 48 Respiratory 16 Rate Blood Pressure 149/77 (mmHg) O2 Sat by Pulse 97 Oximetry Oxygen Devices in Use Now: None Appearance: 76 yo M in nAD, aAOx3 Eyes: No Scleral Icterus, PERRLA Ears/Nose/Mouth/Throat: NL Teeth, Lips, Gums, Mucous Membranes Moist Neck: NL Appearance and Movements; NL JVP, Trachea Midline Respiratory: Symmetrical Chest Expansion and Respiratory Effort, Clear to Auscultation Cardiovascular: NL Sounds; No Murmurs; No JVD, RRR Abdominal: NL Sounds; No Tenderness; No Distention, No Hepatosplenomegaly Lymphatic: No Cervical Adenopathy Extremities: No Edema, No Clubbing, Cyanosis Skin: No Rash or Ulcers, No Nodules or Sclerosis Neurological: Alert and Oriented x 3, NL Muscle Strength and Tone Result Diagrams: 04/07/17 07:27 04/07/17 07:27 Additional Lab and Data: Lab Results 04/06/17 04/06/17 04/06/17 Range/Units 20:14 20:14 20:14 WBC 4.6 (3.5-10.8) 10^3/ul RBC 4.48 (4.0-5.4) 10^6/ul Hgb 13.9 L (14.0-18.0) g/dl Hct 42 (42-52) % MCV 94 (80-94) fL MCH 31 (27-31) pg MCHC 33 (31-36) g/dl RDW 13 (10.5-15) % Plt Count 126 L (150-450) 10^3/ul MPV 9 (7.4-10.4) um3 Neut % (Auto) 63.4 (38-83) % Lymph % (Auto) 22.8 L (25-47) % [place] % (Auto) 7.3 (1-9) % Eos % (Auto) 6.1 H (0-6) % Baso % (Auto) 0.4 (0-2) % Absolute Neuts (auto) 2.9 (1.5-7.7) 10^3/ul Absolute Lymphs (auto) 1.0 (1.0-4.8) 10^3/ul Absolute Monos (auto) 0.3 (0-0.8) 10^3/ul Absolute Eos (auto) 0.3 (0-0.6) 10^3/ul Absolute Basos (auto) 0 (0-0.2) 10^3/ul Absolute Nucleated RBC 0 10^3/ul Nucleated RBC % 0.1 Sodium 138 (133-145) mmol/L Potassium 4.5 (3.5-5.0) mmol/L Chloride 105 (101-111) mmol/L Carbon Dioxide 29 (22-32) mmol/L Anion Gap 4 (2-11) mmol/L BUN 21 (6-24) mg/dL Creatinine 1.10 (0.67-1.17) mg/dL Est GFR ( Amer) 83.3 (>60) Est GFR (Non-Af Amer) 64.7 (>60) BUN/Creatinine Ratio 19.1 (8-20) Glucose 93 (70-100) mg/dL Lactic Acid 0.9 (0.5-2.0) mmol/L Calcium 9.3 (8.6-10.3) mg/dL Magnesium 2.2 (1.9-2.7) mg/dL Total Bilirubin 2.60 H (0.2-1.0) mg/dL AST 683 H (13-39) U/L ALT Pending Alkaline Phosphatase 178 H (34-104) U/L Troponin I 0.00 (<0.04) ng/mL C-Reactive Protein 1.68 (< 5.00) mg/L Total Protein 6.8 (6.4-8.9) g/dL Albumin 4.2 (3.2-5.2) g/dL Globulin 2.6 (2-4) g/dL Albumin/Globulin Ratio 1.6 (1-3) Amylase 40 (29-103) U/L Lipase 41 (11.0-82.0) U/L Assess/Plan/Problems-Billing Assessment: 76 yo M with h/o ETOH abuse, CABG, HTN, GERD presents with RUQ abd pain - Patient Problems (1) Cholecystitis, acute with cholelithiasis Comment: CBD at 0.9 cm and possible obstruction cont Zosyn CT and US reviewed. LFT's still increasing, although pain is controlled Plan for MRCP, poss ERCP in AM Appreciated GI consult, Dr. Richey consulted cont NPO, IVF (2) Gastric ulcer Comment: in 2016, cont Pepcid PO (3) HTN (hypertension) Comment: cont metoprolol (4) CAD (coronary artery disease) Comment: s/p CABG in 2010, walks 150 stairs a day with no symptoms/CP EKG shows unchanged biphasic T's in leads V1-V3. no need for further cardiac eval. He is an appropiate candidate for ERCP and/or cholecystectomy if needed. (5) Alcohol abuse Comment: cont thiamine/folate/WAM. no signs of withdrawal (6) DVT prophylaxis Comment: heparin sc Status and Disposition: inpatient
[2017-04-07] MEDS: NS 0.9% 1000 ML* 1,000 ML IV SCH (16:59)
[2017-04-08] MEDS: NS 0.9% 1000 ML* 1,000 ML IV SCH ×2 (00:25→08:25)
[2017-04-08] MEDS: Morphine INJ* 2 MG/ML 1 ML SYRINGE IV PRN ×2 (00:25→19:38)
[2017-04-08] MEDS: ZOSYN 3.375 GM Q8H per EXTENDED INFUSION IVPB SCH ×6 (04:21→19:38)
[2017-04-08] MEDS: Heparin VIAL(*) 5000 UNITS/ML VIAL (FIVE THOUSAND) SUBCUT SCH ×3 (05:49→21:40)
[2017-04-08 06:33] LABS: Hematocrit 37 % (42-52); Hemoglobin 12.3 g/dl (14.0-18.0); Mean Corpuscular HGB Conc 33 g/dl (31-36); Mean Corpuscular Hemoglobin 31 pg (27-31); Mean Corpuscular Volume 95 fL (80-94); Mean Platelet Volume 10 um3 (7.4-10.4); Red Blood Count 3.91 10^6/ul (4.0-5.4); Red Cell Distribution Width 13 % (10.5-15); White Blood Count 3.9 10^3/ul (3.5-10.8)
[2017-04-08 06:35] LABS: Comments Flag Yes
[2017-04-08 06:53] LABS: Albumin 3.3 g/dL (3.2-5.2); BUN/Creatinine Ratio 15.8 (8-20); Calcium 8.5 mg/dL (8.6-10.3); EGFR African American 91.9 (>60); EGFR Non-African American 71.4 (>60); Globulin 2.2 g/dL (2-4); Indirect Bilirubin 1.5 mg/dL (0.3-1.0); Potassium 4.2 mmol/L (3.5-5.0); Total Bilirubin 2.5 mg/dL (0.2-1.0); Total Protein 5.5 g/dL (6.4-8.9)
[2017-04-08] MEDS: Folic Acid TAB* 1 MG PO SCH (08:45)
[2017-04-08] MEDS: Multivitamins/Minerals TAB PO SCH (08:45)
[2017-04-08] MEDS: Famotidine TAB* 20 MG PO SCH ×2 (08:45→19:40)
[2017-04-08] MEDS: Thiamine TAB* 100 MG TAB PO SCH (08:45)
[2017-04-08] MEDS: Metoprolol Succinate XL TAB* 25 MG PO SCH (08:45)
[2017-04-08] MEDS ORDERED: Dextrose 50% Syringe 50 ML* 25 GM/50 ML SYRINGE IV PUSH PRN (08:58)
--- NOTE | 2017-04-08 09:02 | PN ---
Subjective Date of Service: 04/08/17 Interval History: pt feels wel, c/o occasional "twinge" in the epigastrium. Now pain free Objective Active Medications: Acetaminophen (Tylenol Tab*) 650 mg PO Q4H PRN PRN Reason: PAIN Amlodipine Besylate (Norvasc Tab*) 5 mg PO DAILY [facility] Aspirin (Aspirin Low Dose Tab*) 81 mg PO DAILY [facility] Docusate Sodium (Colace Cap*) 100 mg PO BID PRN PRN Reason: CONSTIPATION Famotidine (Pepcid Tab*) 20 mg PO BID [facility] Last Admin: 04/08/17 08:45 Dose: 20 mg Folic Acid (Folvite Tab*) 1 mg PO DAILY [facility] Last Admin: 04/08/17 08:45 Dose: 1 mg Heparin Sodium (Porcine) (Heparin Vial(*)) 5,000 units SUBCUT Q8HR [facility] Last Admin: 04/08/17 05:49 Dose: 5,000 units Sodium Chloride (Ns 0.9% 1000 Ml*) 1,000 mls @ 125 mls/hr IV PER RATE [facility] Last Admin: 04/08/17 08:25 Dose: 125 mls/hr Piperacillin Sod/Tazobactam (Sod 3.375 gm/ Sodium Chloride) 100 mls @ 25 mls/ hr IVPB Q8H [facility] Last Admin: 04/08/17 04:21 Dose: 25 mls/hr Metoprolol Succinate (Toprol Xl Tab*) 25 mg PO DAILY [facility] Last Admin: 04/08/17 08:45 Dose: 25 mg Morphine Sulfate (Morphine Inj (Syringe)*) 2 mg IV Q4H PRN PRN Reason: PAIN Last Admin: 04/08/17 00:25 Dose: 2 mg Multivitamins/Minerals (Theragran/Minerals Tab*) 1 tab PO DAILY [facility] Last Admin: 04/08/17 08:45 Dose: 1 tab Ondansetron HCl (Zofran Inj*) 4 mg IV Q4H PRN PRN Reason: NAUSEA/VOMITING Last Admin: 04/08/17 00:25 Dose: 4 mg Pharmacy Consult (Zosyn Per Pharmacy*) 1 note FOLLOW UP .ZOSYN PER PHARMACY [facility] Senna (Senokot Tab*) 1 tab PO BEDTIME PRN PRN Reason: CONSTIPATION Thiamine HCl (Vitamin B-1 Tab*) 100 mg PO DAILY [facility] Last Admin: 04/08/17 08:45 Dose: 100 mg Vital Signs 04/07/17 04/07/17 04/07/17 09:38 10:09 12:03 Temperature 97.7 F 97.5 F Pulse Rate 50 48 Respiratory 16 16 16 Rate Blood Pressure 141/66 149/77 (mmHg) O2 Sat by Pulse 98 97 Oximetry 04/07/17 04/07/17 04/07/17 14:11 15:37 18:08 Temperature 97.8 F 97.6 F 97.4 F Pulse Rate 51 47 51 Respiratory 16 18 17 Rate Blood Pressure 137/68 160/63 157/68 (mmHg) O2 Sat by Pulse 99 98 98 Oximetry 04/07/17 04/07/17 04/07/17 18:50 19:39 19:54 Temperature 97.4 F 97.6 F Pulse Rate 54 54 Respiratory 16 14 16 Rate Blood Pressure 164/72 156/71 (mmHg) O2 Sat by Pulse 98 97 Oximetry 04/07/17 04/08/17 04/08/17 23:51 00:25 01:25 Temperature 97.8 F Pulse Rate 60 Respiratory 16 15 18 Rate Blood Pressure 157/77 (mmHg) O2 Sat by Pulse 97 Oximetry 04/08/17 04/08/17 03:37 07:34 Temperature 97.7 F 97.5 F Pulse Rate 60 61 Respiratory 16 16 Rate Blood Pressure 136/68 170/76 (mmHg) O2 Sat by Pulse 97 99 Oximetry Oxygen Devices in Use Now: None Appearance: 76 yo M in nAD, AAOx3 Eyes: No Scleral Icterus, PERRLA Ears/Nose/Mouth/Throat: NL Teeth, Lips, Gums, Mucous Membranes Moist Neck: NL Appearance and Movements; NL JVP, Trachea Midline Respiratory: Symmetrical Chest Expansion and Respiratory Effort, Clear to Auscultation Cardiovascular: NL Sounds; No Murmurs; No JVD, RRR Abdominal: NL Sounds; No Tenderness; No Distention, No Hepatosplenomegaly Lymphatic: No Cervical Adenopathy Extremities: No Edema, No Clubbing, Cyanosis Skin: No Rash or Ulcers, No Nodules or Sclerosis Neurological: Alert and Oriented x 3, NL Muscle Strength and Tone Result Diagrams: 04/08/17 05:12 04/08/17 05:12 Additional Lab and Data: Lab Results 04/06/17 04/06/17 04/06/17 Range/Units 20:14 20:14 20:14 WBC 4.6 (3.5-10.8) 10^3/ul RBC 4.48 (4.0-5.4) 10^6/ul Hgb 13.9 L (14.0-18.0) g/dl Hct 42 (42-52) % MCV 94 (80-94) fL MCH 31 (27-31) pg MCHC 33 (31-36) g/dl RDW 13 (10.5-15) % Plt Count 126 L (150-450) 10^3/ul MPV 9 (7.4-10.4) um3 Neut % (Auto) 63.4 (38-83) % Lymph % (Auto) 22.8 L (25-47) % [place] % (Auto) 7.3 (1-9) % Eos % (Auto) 6.1 H (0-6) % Baso % (Auto) 0.4 (0-2) % Absolute Neuts (auto) 2.9 (1.5-7.7) 10^3/ul Absolute Lymphs (auto) 1.0 (1.0-4.8) 10^3/ul Absolute Monos (auto) 0.3 (0-0.8) 10^3/ul Absolute Eos (auto) 0.3 (0-0.6) 10^3/ul Absolute Basos (auto) 0 (0-0.2) 10^3/ul Absolute Nucleated RBC 0 10^3/ul Nucleated RBC % 0.1 Sodium 138 (133-145) mmol/L Potassium 4.5 (3.5-5.0) mmol/L Chloride 105 (101-111) mmol/L Carbon Dioxide 29 (22-32) mmol/L Anion Gap 4 (2-11) mmol/L BUN 21 (6-24) mg/dL Creatinine 1.10 (0.67-1.17) mg/dL Est GFR ( Amer) 83.3 (>60) Est GFR (Non-Af Amer) 64.7 (>60) BUN/Creatinine Ratio 19.1 (8-20) Glucose 93 (70-100) mg/dL Lactic Acid 0.9 (0.5-2.0) mmol/L Calcium 9.3 (8.6-10.3) mg/dL Magnesium 2.2 (1.9-2.7) mg/dL Total Bilirubin 2.60 H (0.2-1.0) mg/dL AST 683 H (13-39) U/L ALT Pending Alkaline Phosphatase 178 H (34-104) U/L Troponin I 0.00 (<0.04) ng/mL C-Reactive Protein 1.68 (< 5.00) mg/L Total Protein 6.8 (6.4-8.9) g/dL Albumin 4.2 (3.2-5.2) g/dL Globulin 2.6 (2-4) g/dL Albumin/Globulin Ratio 1.6 (1-3) Amylase 40 (29-103) U/L Lipase 41 (11.0-82.0) U/L Assess/Plan/Problems-Billing Assessment: 76 yo M with h/o ETOH abuse, CABG, HTN, GERD presents with RUQ abd pain - Patient Problems (1) Cholecystitis, acute with cholelithiasis Comment: CBD at 0.9 cm and possible obstruction, although today LFT's are improving and pain seems to be resolving cont Zosyn Plan for MRCP today Appreciated GI consult, Dr. Richey consulted cont NPO, IVF will be changed to D5 due to hypoglycemia this AM (2) Gastric ulcer Comment: in 2016, cont Pepcid PO (3) HTN (hypertension) Comment: uncontrolled, metoprolol, restarting Norvasc (4) CAD (coronary artery disease) Comment: s/p CABG in 2010, walks 150 stairs a day with no symptoms/CP EKG shows unchanged biphasic T's in leads V1-V3. no need for further cardiac eval. He is an appropiate candidate for ERCP and/or cholecystectomy if needed. (5) Alcohol abuse Comment: cont thiamine/folate. no signs of withdrawal, WAM will be discontinued (6) DVT prophylaxis Comment: heparin sc Status and Disposition: inpatient
[2017-04-08] MEDS: amLODIPine TAB* 5 MG PO SCH (09:54)
[2017-04-08] MEDS: D5LR 1000 ML BAG* 1,000 ML IV SCH ×2 (09:55→19:36)
--- NOTE | 2017-04-08 11:39 | RAD ---
Indication: Abdominal pain. Cholecystitis. Comparison: April 06, 2017 RIGHT upper quadrant ultrasound. Technique: Selleroutle[employer] 1.5 Daysi [id number] with GEM suite. Noncontrast magnetic resonance cholangiopancreatography. Report: Negative for intrahepatic biliary dilatation. Distended gallbladder measuring up to 9 cm in length. 3.2 mm gallbladder wall thickness. Small dependent stones in the gallbladder measuring up to 6 mm diameter. Trace pericholecystic fluid. Upper normal common bile duct size accounting for advanced age measuring up to 7.5 mm diameter. No filling defects are visualized within the cystic or common bile duct to indicate ductal stones. Negative for pancreatic duct dilatation. 6 cm diameter exophytic cortical cyst at the midpole of the LEFT kidney with adjacent smaller cortical cyst. Negative for hydronephrosis. Median sternotomy wires. Elevation of the LEFT hemidiaphragm. IMPRESSION: 1. Distended gallbladder with cholelithiasis, minimal gallbladder wall thickening, and trace pericholecystic fluid. Acute cholecystitis not excluded. 2. Negative for intra or extrahepatic biliary dilatation or conspicuous ductal stones.
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
[2017-04-08] MEDS ORDERED: Bupivacaine 0.25% EPI 200,000* 30 ML SDV ONE (16:03)
[2017-04-08] MEDS ORDERED: Lidocaine 1% INJ* 10 MG/ML 30 ML SDV ONE (16:08)
[2017-04-08] MEDS ORDERED: Succinylcholine* 20 MG/ML 10 ML VIAL ONE (16:08)
[2017-04-08] MEDS ORDERED: KETAMINE HCL* 50 MG/ML 10 ML VIAL ONE (16:09)
[2017-04-08] MEDS ORDERED: fentaNYL* 50 MCG/ML 2 ML VIAL (100 MCG VIAL) ONE (16:09)
[2017-04-08] MEDS ORDERED: Midazolam* 1 MG/ML 2 ML VIAL (2 MG) ONE (16:10)
[2017-04-08] MEDS ORDERED: Rocuronium* 10 MG/ML VIAL ONE (16:10)
[2017-04-08] MEDS ORDERED: Ondansetron INJ* 2 MG/ML VIAL ONE (16:45)
[2017-04-08] MEDS ORDERED: Dexamethasone IV* 4 MG/ML 1 ML (4 MG) ONE (16:45)
[2017-04-08] MEDS ORDERED: Propofol* 10 MG/ML 20 ML BTL IV PUSH ONE (16:45)
[2017-04-08] MEDS ORDERED: nitroGLYCERIN IV VIAL* 5 MG/ML VIAL ONE (16:52)
[2017-04-08] MEDS ORDERED: Neostigmine Methylsulfate* 2 MG/2 ML SYRINGE ONE (17:23)
[2017-04-08] MEDS ORDERED: Glycopyrrolate IV* 0.2 MG/ML 1 ML VIAL ONE ×3 (17:23→17:43)
[2017-04-08] MEDS ORDERED: DiMENhydriNATE IV* 50 MG/ML VIAL IV PUSH PRN (18:01)
[2017-04-08] MEDS ORDERED: fentaNYL* 50 MCG/ML 2 ML VIAL (100 MCG VIAL) IV PRN (18:01)
--- NOTE | 2017-04-08 18:04 | PN ---
Progress Note - Progress Note Note: Brief Operative Note: Preop Dx: acute calculous cholecystitis Postop Dx: same Procedure: laparoscopic cholecystectomy Anesthesia: GET Surgeon: Cem Asst: AUBREY Segura EBL: < 100 ml Fluids: 900 ml crystalloid Drains: none Specimen: gallbladder Findings: dictated
[2017-04-08] MEDS ORDERED: HYDROcodone/ACETAMIN 5-325 MG* 1 TAB PO PRN (18:08)
[2017-04-09] MEDS: ZOSYN 3.375 GM Q8H per EXTENDED INFUSION IVPB SCH ×2 (03:55)
[2017-04-09] MEDS: Heparin VIAL(*) 5000 UNITS/ML VIAL (FIVE THOUSAND) SUBCUT SCH (05:32)
[2017-04-09 06:50] LABS: Hematocrit 41 % (42-52); Hemoglobin 13.5 g/dl (14.0-18.0); Mean Corpuscular HGB Conc 33 g/dl (31-36); Mean Corpuscular Hemoglobin 31 pg (27-31); Mean Corpuscular Volume 94 fL (80-94); Mean Platelet Volume 10 um3 (7.4-10.4); Red Blood Count 4.31 10^6/ul (4.0-5.4); Red Cell Distribution Width 13 % (10.5-15); White Blood Count 5.2 10^3/ul (3.5-10.8)
[2017-04-09 07:02] LABS: BUN/Creatinine Ratio 12.8 (8-20); Calcium 9.5 mg/dL (8.6-10.3); EGFR African American 77.5 (>60); EGFR Non-African American 60.3 (>60); Globulin 2.7 g/dL (2-4); Total Bilirubin 1.7 mg/dL (0.2-1.0); Total Protein 6.7 g/dL (6.4-8.9)
[2017-04-09] MEDS: Folic Acid TAB* 1 MG PO SCH (08:03)
[2017-04-09] MEDS: Thiamine TAB* 100 MG TAB PO SCH (08:03)
[2017-04-09] MEDS: Multivitamins/Minerals TAB PO SCH (08:03)
[2017-04-09] MEDS: Famotidine TAB* 20 MG PO SCH (08:45)
[2017-04-09] MEDS: amLODIPine TAB* 5 MG PO SCH (08:45)
[2017-04-09] MEDS: Metoprolol Succinate XL TAB* 25 MG PO SCH (08:45)
[2017-04-09 08:52] VITALS: BP 185/88
[2017-04-09] MEDS ORDERED: Aspirin Low Dose CHEW TAB* 81 MG PO SCH (09:00)
--- NOTE | 2017-04-09 11:57 | OP ---
DATE OF OPERATION: 04/08/17 - ROOM #341 DATE OF : 36. SURGEON: Phillip Almeida MD. FIELD ARTILLERY OFFICER: AUBREY Gustafson. ANESTHESIOLOGIST: Dr. Magallanes. ANESTHESIA: General with local. PRE-OP DIAGNOSIS: Acute calculous cholecystitis. POST-OP DIAGNOSIS: Acute calculous cholecystitis. OPERATIVE PROCEDURE: Laparoscopic cholecystectomy. ESTIMATED BLOOD LOSS: Minimal. IV FLUID: 1 L of crystalloid. SPECIMENS: Gallbladder with contained gallstones. DRAINS: None. WOUND CLASSIFICATION: III. COMPLICATIONS: None. FINDINGS: The patient had acute calculous cholecystitis with edematous wall of the gallbladder with inflammation throughout the wall. The cystic duct was mildly enlarged and was ligated with 2-0 Vicryl Endoloop. BRIEF HISTORY: Mr. Camilo Vick is a 76-year-old gentleman who presented to the emergency room and was admitted to the medical service with several days of epigastric and right upper quadrant quadrant pain radiating to his back. He has had several episodes over the past several months that lasted for several hours. He has not sought care; however, this became quite unbearable. In the emergency room, he was noted to have a normal white blood cell count and an ultrasound that showed gallstones, some mild gallbladder wall thickening and pericholecystic fluid. He also noted to have a mildly elevated total bilirubin , which increased on hospital day #1 with elevated AST and ALT. He underwent an MRCP this morning, which showed no findings consistent with common bile duct stone and in addition his total bilirubin was starting to trend down as well. In light of his workup and his history it was felt that his symptoms are due to the cholelithiasis and at this point, it was recommended he undergo a laparoscopic cholecystectomy to prevent further problems. The procedure was discussed in detail with the patient, the risks but not limited to bleeding, infection, intraabdominal abscess formation, injury to peritoneal and retroperitoneal structures, possible common bile duct injury requiring further reconstruction, abscess, possibility of an open procedure, the risk of general anesthesia, deep vein thrombosis and recovery times, and activity restrictions were all explained. DESCRIPTION OF PROCEDURE: Written informed consent was obtained, the abdomen was marked with indelible ink and preoperative antibiotics were administered. The patient was taken to the operating room and placed in the supine position. Sequential compression devices and a warming blanket were applied, and general anesthesia was administered. The abdomen was prepped and draped in the usual sterile fashion. Time-out verification was completed. Initially, a small transverse incision was made just above the umbilicus in the midline. The peritoneal cavity was entered under direct vision. The 12-mm blunt port was inserted and the abdomen was insufflated to 15 mmHg. An 11-mm epigastric port was placed and two 5-mm ports were placed in the right side of the abdominal wall. Careful evaluation of the liver appeared that this was fairly unremarkable. The gallbladder was distended and firm and edematous and greenish-yellowish in color consistent with acute calculous cholecystitis. There was pericholecystic fluid and edema in the peritoneum, especially in the infundibular area. The gallbladder was then grasped and there was some leakage of bile but no stones. This was aspirated well. I did not feel the gallstones were spilled during the remainder of the case. The edematous peritoneum along the medial and lateral aspects of the gallbladder was then taken down using both sharp and blunt dissection as well as cautery. The cystic artery and cystic duct were identified and dissected as they entered the gallbladder. I took a considerable portion of the inferior part of the gallbladder off the liver bed using the critical view technique to assure myself of the structure. The cystic artery was then doubly clipped and divided. The cystic duct was just about a width of 1 cm, i.e., just about the full width of the 10 mm clip commercial escrow officer. This was not surprising. In fact, he had some elevated transaminases and bilirubin. I suspect that he had passed a stone. I continued to take more of the gallbladder off the liver bed to assure myself that this was the cystic duct. I next placed clips that just traversed the cystic duct and along the gallbladder. This was divided and I additionally ligated the cystic duct with 2- 0 Polysorb Endoloop just below the clips and this was quite secure. The gallbladder was then removed from the liver bed with cautery. There were several larger vessels higher up into the liver bed, which were clipped. Gallbladder obviously had some significant inflammatory response and inflammation along the gallbladder bed that made this dissection somewhat tedious. The gallbladder was then placed in an Endo Catch bag and brought out through the umbilical incision. The gallbladder bed was evaluated and hemostasis was assured. Large amount of saline was used to irrigate the right upper quadrant including above the liver until this was clear. All ports were removed under direct vision of the camera. There was no abdominal wall bleeding. The umbilical fascia was closed with interrupted 0 Polysorb suture. The skin at all three incisions was approximated with subcuticular 4-0 Polysorb suture. Steri- Strips were applied. The patient tolerated the procedure well and was taken to the recovery room in stable condition. [id number]/[facility] #: [id number] AN
--- NOTE | 2017-04-09 15:03 | PN ---
Progress Note - Progress Note SOAP: Subjective: Patient initially seen at 0800 this morning He has minimal pain and is tolerating liquids Ambulating to the bathroom Objective: Temp Pulse Resp BP Pulse Ox 97.4 F 49 16 185/88 98 04/09/17 08:51 04/09/17 08:51 04/09/17 08:51 04/09/17 08:51 04/09/17 08:51 Intake & Output 04/07/17 04/08/17 04/09/17 04/10/17 06:59 06:59 06:59 06:59 Intake Total 1800 2264 3849 240 Output Total 200 1850 2750 Balance 4455 966 5615 240 Weight 153 lb Intake: IV Fluids 1800 2164 1934 LR 900 NS 700 2164 1034 IVPB 100 100 ABX - ZOSYN 100 100 Oral 0 1815 240 Output: Urine 200 1850 2750 Other: Estimated Void Medium Estimated Blood Loss MINIMAL Comment # Voids 1 PEX: Comfortable Abd is soft and slightly distended. Incisions are clean and dry. Bowel sounds are present Laboratory Last Values WBC 5.2 10^3/ul (3.5-10.8) 04/09/17 06:17 RBC 4.31 10^6/ul (4.0-5.4) 04/09/17 06:17 Hgb 13.5 g/dl (14.0-18.0) L 04/09/17 06:17 Hct 41 % (42-52) L 04/09/17 06:17 MCV 94 fL (80-94) 04/09/17 06:17 MCH 31 pg (27-31) 04/09/17 06:17 MCHC 33 g/dl (31-36) 04/09/17 06:17 RDW 13 % (10.5-15) 04/09/17 06:17 Plt Count 117 10^3/ul (150-450) L 04/09/17 06:17 MPV 10 um3 (7.4-10.4) 04/09/17 06:17 Neut % (Auto) 85.7 % (38-83) H 04/09/17 06:17 Lymph % (Auto) 9.7 % (25-47) L 04/09/17 06:17 [place] % (Auto) 4.5 % (1-9) 04/09/17 06:17 Eos % (Auto) 0 % (0-6) 04/09/17 06:17 Baso % (Auto) 0.1 % (0-2) 04/09/17 06:17 Absolute Neuts (auto) 4.5 10^3/ul (1.5-7.7) 04/09/17 06:17 Absolute Lymphs (auto) 0.5 10^3/ul (1.0-4.8) L 04/09/17 06:17 Absolute Monos (auto) 0.2 10^3/ul (0-0.8) 04/09/17 06:17 Absolute Eos (auto) 0 10^3/ul (0-0.6) 04/09/17 06:17 Absolute Basos (auto) 0 10^3/ul (0-0.2) 04/09/17 06:17 Absolute Nucleated RBC 0 10^3/ul 04/09/17 06:17 Nucleated RBC % 0 04/09/17 06:17 Sodium 137 mmol/L (133-145) 04/09/17 06:17 Potassium 4.0 mmol/L (3.5-5.0) 04/09/17 06:17 Chloride 102 mmol/L (101-111) 04/09/17 06:17 Carbon Dioxide 29 mmol/L (22-32) 04/09/17 06:17 Anion Gap 6 mmol/L (2-11) 04/09/17 06:17 BUN 15 mg/dL (6-24) 04/09/17 06:17 Creatinine 1.17 mg/dL (0.67-1.17) 04/09/17 06:17 Est GFR ( Amer) 77.5 (>60) 04/09/17 06:17 Est GFR (Non-Af Amer) 60.3 (>60) 04/09/17 06:17 BUN/Creatinine Ratio 12.8 (8-20) 04/09/17 06:17 Glucose 128 mg/dL (70-100) H 04/09/17 06:17 Lactic Acid 0.9 mmol/L (0.5-2.0) 04/06/17 20:14 Calcium 9.5 mg/dL (8.6-10.3) 04/09/17 06:17 Magnesium 2.2 mg/dL (1.9-2.7) 04/06/17 20:14 Total Bilirubin 1.70 mg/dL (0.2-1.0) H 04/09/17 06:17 Direct Bilirubin 1.00 mg/dL (0.03-0.18) H 04/08/17 05:12 Indirect Bilirubin 1.5 mg/dL (0.3-1.0) H 04/08/17 05:12 AST 84 U/L (13-39) H 04/09/17 06:17 ALT 305 U/L (7-52) H 04/09/17 06:17 Alkaline Phosphatase 152 U/L (34-104) H 04/09/17 06:17 Troponin I 0.00 ng/mL (<0.04) 04/06/17 20:14 C-Reactive Protein 1.68 mg/L (< 5.00) 04/06/17 20:14 Total Protein 6.7 g/dL (6.4-8.9) 04/09/17 06:17 Albumin 4.0 g/dL (3.2-5.2) 04/09/17 06:17 Globulin 2.7 g/dL (2-4) 04/09/17 06:17 Albumin/Globulin Ratio 1.5 (1-3) 04/09/17 06:17 Amylase 40 U/L (29-103) 04/06/17 20:14 Lipase 41 U/L (11.0-82.0) 04/06/17 20:14 Assessment: POD # 1 s/p lap cholecystectomy for acute calclulous cholecystitis LFT's improving Plan: Advance diet today OK for discharge home from surgical standpoint. Outpatient surgical follow up.
--- NOTE | 2017-04-10 03:35 | DS ---
CC: Cruzito Escoto MD; José Miguel Kaufman MD * DISCHARGE SUMMARY: DATE OF ADMISSION: 04/07/17 DATE OF DISCHARGE: 04/09/17 ATTENDING SURGEON: Phillip Almeida MD (DICTATED BY AUBREY GOVEA) HOSPITAL COURSE: Please refer to admission history and physical and surgical consult for admission details. In summary, the patient presented with upper abdominal pain with elevated liver function tests and a mildly dilated common bile duct. A subsequent MRCP was negative for filling defect and his LFTs were already beginning to normalize. In addition, his clinical picture was improving. He was, therefore, taken to the operating room in the afternoon of 04/08/17 and underwent laparoscopic cholecystectomy with Dr. Almeida. Surgery was uneventful with findings of acute cholecystitis. His postoperative course has been otherwise uneventful and as of the morning of discharge, he is pain free and tolerating diet. Vital signs: Temperature 97.4, blood pressure 185/88, pulse 49, respirations 16, room air saturation 98%. The patient was examined earlier this morning by Dr. Almeida and discharge instructions regarding wound care, diet, and activity were reviewed. He will resume his usual home medications: 1. Aspirin 81 mg once daily, 4 days out of 7. 2. Extended release metoprolol 25 mg one-half tablet once daily. 3. Lisinopril 10 mg once daily. 4. Furosemide 20 mg once daily. 5. Amlodipine 5 mg once daily. 6. Simvastatin 20 mg once daily. 7. Pantoprazole, dose not specified, once daily. 8. Famotidine 20 mg b.i.d. p.r.n. 9. Ferrous sulfate 325 mg once daily. 10. Vitamin C 250 mg once daily. PLAN: He has a followup in our office with Dr. Almeida on 04/16/17. Based on upper endoscopy report from Dr. Escoto from January 2016 (for gastric ulcer), he was advised to call Dr. Escoto's office regarding followup. AUBREY GOVEA [id number]/[facility] #: [id number] [facility]
--- NOTE | 2017-04-10 04:43 | DS ---
CC: Dr. José Miguel Kaufman; Dr. Almeida * DISCHARGE SUMMARY: DATE OF ADMISSION: 04/07/17. DATE OF DISCHARGE: 04/09/17. PRIMARY CARE PROVIDER: Dr. José Miguel Kaufman. DISCHARGE DIAGNOSIS: Acute obstructive cholecystitis, status post laparoscopic cholecystectomy performed by Dr. Almeida on 04/08/17. SECONDARY DIAGNOSES: 1. History of peptic ulcer disease. 2. History of coronary artery disease status post coronary artery bypass grafting in 2010. 3. History of prostate cancer status post prostatectomy. 4. History of GI bleed. 5. Hypertension. 6. Hyperlipidemia. 7. Arthritis. MEDICATIONS AT DISCHARGE: Unchanged from admission and include: 1. Tylenol on a p.r.n. basis. 2. Aspirin 81 mg daily. 3. Pepcid 20 mg b.i.d. 4. Fluticasone nasal spray 1 spray at bedtime. 5. Furosemide 20 mg daily. 6. Lisinopril 10 mg daily. 7. Metoprolol succinate 12.5 mg daily 8. Simvastatin 20 mg daily. 9. Amlodipine 2.5 mg daily. CONSULTATIONS: Consultations during the hospital stay included Dr. Collado from gastroenterology, Dr. Almeida from surgery. LABORATORY DATA: At discharge included: On 04/09/17, white blood cell count 5.2, hemoglobin 13.5, hematocrit 41, and platelets 117. Sodium was 137, potassium 4.0, chloride 102, carbon dioxide 29, BUN 15, creatinine 1.17. Liver function tests showed total bilirubin of 1.7, AST of 88, ALT of 305, alkaline phosphatase of 132. MRCP obtained on 03/29/17, impression: "Distended gallbladder with cholelithiasis. Minimal gallbladder wall thickening and trace pericholecystic fluid. Acute cholecystitis not excluded. Negative for intra or extrahepatic biliary dilatation or conspicuous ductal stones." Gallbladder ultrasound unchanged from admission. HOSPITALIZATION COURSE: Camilo Vick is a 76-year-old male with chronic medical problems as mentioned above that include daily alcohol use, hypertension , and coronary artery disease who presented to the hospital complaining of right upper quadrant abdominal pain, who was diagnosed with acute cholecystitis most likely obstructive. His common bile duct on presentation ultrasound was noted to be 0.9 cm. His liver function tests increased for approximately 24 hours and they started coming down. At this point, the suspicion was that patient most likely had an obstructive biliary stone that passed. The MRCP performed on 04/08/17, proved that patient no longer had an biliary obstruction and he was taken to surgery on the same day by Dr. Almeida. The patient underwent laparoscopic cholecystectomy on 04/08/17, and by the time of discharge on 04/09/17, he tolerated full diet. He is going to be discharged home. Recommendation was to followup with his primary care provider in 4 to 7 days. [facility] also recommended to followup with Dr. Phillip Almeida on 04/16/17 at 9:30 a.m. Wound care recommendations provided at discharge summary as per surgery. PHYSICAL EXAMINATION AT THE TIME OF DISCHARGE: Blood pressure 185/88, that was prior to his morning medications that he taken, heart rate of 49 and regular, respiratory rate 16, oxygen saturation 98% on room air, temperature 97.4. General: The patient is very pleasant 76-year-old male, who is in no acute distress, alert, awake and oriented x3. HEENT: Head atraumatic, normocephalic. Eyes: Pupils equal and reactive to light and accommodation. Oropharynx clear. Mucosa moist. Neck: Supple. No JVD. No bruits bilaterally. Cardiovascular: Regular rate and rhythm. No murmur. Respiratory : Clear to auscultation bilaterally. Abdomen: Soft, minimally tender in the periincision site. There was no rebound and no guarding. Bowel sounds present in all 4 quadrants. There are approximately 4 incision sites after patient's laparoscopic surgery. Steri-Strips were approximated at the edges and no dehiscences noted. Neuro Evaluation. Cranial nerves II through XII grossly intact. Motor strength is 5/5 bilaterally. Please note that this is a short summary of the patient's hospital stay. Please refer to further medical records for details. TIME SPENT: Approximately 45 minutes was spent on the patient's discharge. [id number]/[facility] #: [id number] [facility]
== END 2017-04-09 10:40 | disposition home or self-care (01) | DRG 418 ==
LOC: ED 19:35 → SSU 04-07 00:23
PROVIDERS: ADMIT Pediatrics; ATTEND Internal Medicine
PROC: 0FT44ZZ Resection of Gallbladder, Percutaneous Endoscopic Approach (ICD-10-PCS; principal; 2017-04-08 14:45)
DX: K80.01 Calculus of gallbladder with acute cholecystitis with obstruction (principal); I25.810 Atherosclerosis of coronary artery bypass graft(s) without angina pectoris; I11.9 Hypertensive heart disease without heart failure; K27.9 Peptic ulcer, site unspecified, unspecified as acute or chronic, without hemorrhage or perforation; Z95.1 Presence of aortocoronary bypass graft; E78.5 Hyperlipidemia, unspecified; M19.90 Unspecified osteoarthritis, unspecified site; F10.10 Alcohol abuse, uncomplicated; Z85.46 Personal history of malignant neoplasm of prostate; Z88.8 Allergy status to other drugs, medicaments and biological substances; Z87.891 Personal history of nicotine dependence; Z82.3 Family history of stroke; Z79.1 Long term (current) use of non-steroidal anti-inflammatories (NSAID); Z79.82 Long term (current) use of aspirin; Z79.899 Other long term (current) drug therapy
CPT/HCPCS: 36415; 74181; 76376; 76705; 80048; 80053; 80076; 82150; 83605; 83690; 83735; 84484; 85025; 85027; 86140; 88304; 93005; A9270-GY; J0330; J1100; J1644; J2001; J2250; J2270; J2405; J2543; J2704; J3010

== ENCOUNTER 2019-02-21 06:16 | Emergency (ER) | payer MEDICARE ==
--- OUTSIDE RECORDS SUMMARY | 2019-02-21 06:22 | XMS REPORT | Continuity of Care Document ---
:1940 External Reference #:[id number] Author Name Jo-Ann Barros NP Address [address] [place] [id number] Care Team Providers Name Role Phone Adithya Frankel MD Care Team Information Frame Runner Unavailable Payers Date Identification Numbers Payment Provider Subscriber Effective: Policy Number: [id number] [facility] Camilo Vick 2018 PayID: [id number] [address] [address] [place] [address] Advance Directives Description No Information Available Problems Description No Information Family History Description No Information Available Social History Type Date Description Comments Sex Unknown Cigarette Use Quit - Age 28 Allergies, Adverse Reactions, Alerts Description No Known Drug Allergies Medications Active Medications SIG Qnty Indications Ordering Provider Date Metoprolol Succinate ER Unknown 25mg Tablets ER 24HR Furosemide Unknown 20mg Tablets Fluticasone Propionate Unknown 50mcg/Act Suspension Lisinopril Take One Tablet Unknown 10mg Tablets By Mouth Every Day Amlodipine Besylate Take One Tablet Unknown 2.5mg By Mouth Every Tablets Day Simvastatin Take One Tablet Unknown 20mg Tablets By Mouth Every Day After Meals Pantoprazole Sodium Take One Tablet Unknown 40mg By Mouth Every Tablets DR Day Ferrous Sulfate 1 by mouth every Unknown 325(65Fe) day mg Tablets Vitamin C 2 tab by mouth Unknown 250mg Tablets every day Aspirin 81 Low Dose 1 by mouth every Unknown 81mg 4 days a week [place] Immunizations CPT Code Status Date Vaccine Lot # [id number] Given 02/17/2019 Prevnar-13 Pneumococcal Conjugate Vaccine [id number] Given 08/06/2018 Influenza Vaccine High Dose PF Vital Signs Date Vital Result Comment 02/17/2019 10:03am Weight 158.00 lb Weight 71.669 kg BP Systolic 170 mmHg BP Diastolic 90 mmHg Heart Rate 72 /min Body Temperature 98.1 F Respiratory Rate 16 /min Height 67.5 inches 5'7.50" BMI (Body Mass Index) 24.4 kg/m2 Results Test Date Facility Test Result H/L Range Note Order 02/17/2019 In Office EKG <pending> Procedures Date Code Description Status 02/17/2019 80756 Brief Emotional/Behav Assessment W/ Scoring Doc Per Completed Standard Inst 02/17/2019 49755 EKG, at Least 12 Leads w/Interpretation and Report Completed 10/21/2016 36436325 Colonoscopy Completed Encounters Type Date Location Provider Dx Diagnosis Office Visit 02/17/2019 Main Office Jo-Ann Barros NP I10 Essential ( primary) 10:15a hypertension E78.5 Hyperlipidemia, unspecified Plan of Treatment 02/17/2019 - Jo-Ann Barros [id number] Essential (primary) hypertensionFollow up: .E78.5 Hyperlipidemia, unspecifiedFollow up:.
[2019-02-21] MEDS ORDERED: Acetaminophen TAB* 325 MG PO ONE (06:46)
[2019-02-21] MEDS: NS 0.9% 1000 ML** 1,000 ML IV ONE ×2 (06:56→07:56)
[2019-02-21 06:59] LABS: ABS Lymphocytes 0.2 10^3/ul (1.0-4.8); ABS Monocytes 0.3 10^3/ul (0-0.8); ABS Neutrophils 4.8 10^3/ul (1.5-7.7); Eosinophil % 0.3 %; Hematocrit 42 % (42-52); Hemoglobin 14.4 g/dL (14.0-18.0); Lymphocyte % 4.5 %; Mean Corpuscular HGB Conc 34 g/dL (31-36); Mean Corpuscular Hemoglobin 32 pg (27-31); Mean Corpuscular Volume 94 fL (80-94); Mean Platelet Volume 8.1 fL (7.4-10.4); Nucleated Red Blood Cells % 0.1; Platelet Count 112 10^3/uL (150-450); Red Blood Count 4.49 10^6 /uL (4.18-5.48); Red Cell Distribution Width 13 % (10.5-15); White Blood Count 5.4 10^3/uL (3.5-10.8)
[2019-02-21 07:06] LABS: Activated Partial Thrombo Time 32.1 seconds (26.0-36.3); INR 1.06 (0.82-1.09)
[2019-02-21 07:23] LABS: Albumin 4.1 g/dL (3.2-5.2); Albumin/Globulin Ratio 1.6 (1-3); BUN/Creatinine Ratio 12.5 (8-20); C Reactive Protein 68.76 mg/L (<8.01); Calcium 9.3 mg/dL (8.6-10.3); EGFR African American 57.1 (>60); EGFR Non-African American 47.2 (>60); Globulin 2.6 g/dL (2-4); Total Protein 6.7 g/dL (6.4-8.9)
[2019-02-21 07:24] LABS: Troponin I 0.01 ng/mL (<0.04)
[2019-02-21 07:25] LABS: Influenza A Molecular NEGATIVE (Negative); Influenza B Molecular NEGATIVE (Negative)
[2019-02-21] MEDS ORDERED: NS 0.9% 500 ML* 500 ML IV ONE (07:41)
--- NOTE | 2019-02-21 08:55 | ED ---
Influenza-Like Illness - HPI Summary HPI Summary: Pt. is an 78 y.o male who presents to the ER for flu like symptoms that started two days ago. Pt. c/o a headache, fever/chills, myalgias, nausea and diarrhea. Denies CP, SOB, abd. pain. Past medical hx of HTN, GERD, seasonal allergies. Symptoms are moderate in severity. - History of Current Complaint Chief Complaint: EDFluSymptoms Time Seen by Provider: 02/21/19 06:32 Hx Obtained From: Patient - Allergy/Home Medications Allergies/Adverse Reactions: Allergies Allergy/AdvReac Type Severity Reaction Status Date / Time No Known Allergies Allergy Verified 02/21/19 06:22 PMH/Surg Hx/FS Hx/Imm Hx Previously Healthy: Yes Endocrine/Hematology History: Denies: Hx Anticoagulant Therapy - ASA daily, Hx Blood Disorders Cardiovascular History: Reports: Hx Angina, Hx Coronary Artery Disease, Hx Hypercholesterolemia, Hx Hypertension, Hx Valvular Heart Disease - "LEAKY VALVE ", Other Cardiovascular Problems/Disorders - HIGH CHOLESTEROL Respiratory History: Reports: Hx Asthma, Hx Chronic Bronchitis, Hx Seasonal Allergies Comment Only: Other Respiratory Problems/Disorders - PROSTATE CA GI History: Reports: Hx Gall Bladder Disease - pt states it was from an infection from surgery, Hx Gastrointestinal Bleed - current diagnosis, Other GI Disorders - pud History: Reports: Other Problems/Disorders - PROSTATE CA Musculoskeletal History: Reports: Hx Arthritis - bilat feet, Other Musculoskeletal History - RIGHT FOOT TRAUMA Sensory History: Reports: Hx Cataracts, Hx Contacts or Glasses Denies: Hx Glaucoma, Hx Hearing Aid Opthamlomology History: Reports: Hx Cataracts, Hx Contacts or Glasses Denies: Hx Glaucoma Neurological History: Reports: Other Neuro Impairments/Disorders - NUMBNESS LEGS BILAT r/t R FOOT SURGERY YRS AGO - Cancer History Cancer Type, Location and Year: Prostate Hx Chemotherapy: No - Surgical History Surgery Procedure, Year, and Place: 17 YRS AGO, RADICAL PROSTATECTOMY- [facility] [place]. 1976 LEFT INGUINAL HERNIA- [facility]. 39 YRS AGO, 7 COMPOUND FX IN RIGHT FOOT, SURG X 2 WITH SKIN GRAFTS- [facility]. 2009 QUADRUPLE BYPASS- [place] Hx Anesthesia Reactions: No Infectious Disease History: No Infectious Disease History: Denies: Traveled Outside the [place] in Last 30 Days - Family History Known Family History: Positive: None, Cardiac Disease, Hypertension, Other - CVA to father - Social History Occupation: Retired Lives: With Family Alcohol Use: Daily Alcohol Amount: 3 beverages/day Hx Substance Use: No Substance Use Type: Reports: None Hx Tobacco Use: No Smoking Status (MU): Former Smoker Review of Systems Positive: Fever, Chills Eyes: Negative Positive: Epistaxis Cardiovascular: Negative Negative: Palpitations, Chest Pain Positive: Cough. Negative: Shortness Of Breath Positive: Diarrhea, Nausea. Negative: Abdominal Pain Genitourinary: Negative Positive: Myalgia Skin: Negative Negative: Rash Positive: Headache. Negative: Weakness, Paresthesia, Numbness, Syncope, Slurred Speech All Other Systems Reviewed And Are Negative: Yes Physical Exam Triage Information Reviewed: Yes Vital Signs On Initial Exam: Initial Vitals Temp Pulse Resp BP Pulse Ox 98 F 104 20 151/102 95 02/21/19 06:18 02/21/19 06:18 02/21/19 06:18 02/21/19 06:18 02/21/19 06:18 Vital Signs Reviewed: Yes Appearance: Positive: Well-Appearing - Pt. sitting up in bed in NAD. Talkative. Family present. Skin: Positive: Warm, Dry Head/Face: Positive: Normal Head/Face Inspection Eyes: Positive: Normal, EOMI, DEVIN ENT: Positive: Pharynx normal, TMs normal. Negative: Sinus tenderness Neck: Positive: Supple, Nontender. Negative: Nuchal Rigidity Respiratory/Lung Sounds: Positive: Clear to Auscultation, Breath Sounds Present Cardiovascular: Positive: Normal, RRR Abdomen Description: Positive: Nontender, Soft Musculoskeletal: Positive: Normal, Strength/ROM Intact Neurological: Positive: Normal, CN Intact II-III Psychiatric: Positive: Affect/Mood Appropriate - [place] Coma Scale Best Eye Response: 4 - Spontaneous Best Motor Response: 6 - Obeys Commands Best Verbal Response: 5 - Oriented Coma Scale Total: 15 Diagnostics - Vital Signs Vital Signs Temp Pulse Resp BP Pulse Ox 02/21/19 07:00 90 38 94 02/21/19 06:50 92 179/105 96 02/21/19 06:18 98 F 104 20 151/102 95 - Laboratory Lab Results: Lab Results 02/21/19 02/21/19 02/21/19 Range/Units 06:49 06:49 06:49 WBC 5.4 (3.5-10.8) 10^3/uL RBC 4.49 (4.18-5.48) 10^6 /uL Hgb 14.4 (14.0-18.0) g/dL Hct 42 (42-52) % MCV 94 (80-94) fL MCH 32 H (27-31) pg MCHC 34 (31-36) g/dL RDW 13 (10.5-15) % Plt Count 112 L (150-450) 10^3/uL MPV 8.1 (7.4-10.4) fL Neut % (Auto) 89.7 % Lymph % (Auto) 4.5 % Nye % (Auto) 5.3 % Eos % (Auto) 0.3 % Baso % (Auto) 0.2 % Absolute Neuts (auto) 4.8 (1.5-7.7) 10^3/ul Absolute Lymphs (auto) 0.2 L (1.0-4.8) 10^3/ul Absolute Monos (auto) 0.3 (0-0.8) 10^3/ul Absolute Eos (auto) 0.0 (0-0.6) 10^3/ul Absolute Basos (auto) 0.0 (0-0.2) 10^3/ul Absolute Nucleated RBC 0.0 10^3/ul Nucleated RBC % 0.1 INR (Anticoag Therapy) (0.82-1.09) APTT (26.0-36.3) seconds Sodium 137 (135-145) mmol/L Potassium 4.0 (3.5-5.0) mmol/L Chloride 103 (101-111) mmol/L Carbon Dioxide 27 (22-32) mmol/L Anion Gap 7 (2-11) mmol/L BUN 18 (6-24) mg/dL Creatinine 1.44 H (0.67-1.17) mg/dL Est GFR ( Amer) 57.1 (>60) Est GFR (Non-Af Amer) 47.2 (>60) BUN/Creatinine Ratio 12.5 (8-20) Glucose 138 H (70-100) mg/dL Lactic Acid 0.9 (0.5-2.0) mmol/L Calcium 9.3 (8.6-10.3) mg/dL Total Bilirubin 1.00 (0.2-1.0) mg/dL AST 21 (13-39) U/L ALT 22 (7-52) U/L Alkaline Phosphatase 73 (34-104) U/L Troponin I 0.01 (<0.04) ng/mL C-Reactive Protein 68.76 H (<8.01) mg/L B-Natriuretic Peptide (<=100) pg/mL Total Protein 6.7 (6.4-8.9) g/dL Albumin 4.1 (3.2-5.2) g/dL Globulin 2.6 (2-4) g/dL Albumin/Globulin Ratio 1.6 (1-3) Lipase 16 (11.0-82.0) U/L Influenza A (Rapid) (Negative) Influenza B (Rapid) (Negative) 02/21/19 02/21/19 02/21/19 Range/Units 06:49 06:49 06:58 WBC (3.5-10.8) 10^3/uL RBC (4.18-5.48) 10^6 /uL Hgb (14.0-18.0) g/dL Hct (42-52) % MCV (80-94) fL MCH (27-31) pg MCHC (31-36) g/dL RDW (10.5-15) % Plt Count (150-450) 10^3/uL MPV (7.4-10.4) fL Neut % (Auto) % Lymph % (Auto) % Nye % (Auto) % Eos % (Auto) % Baso % (Auto) % Absolute Neuts (auto) (1.5-7.7) 10^3/ul Absolute Lymphs (auto) (1.0-4.8) 10^3/ul Absolute Monos (auto) (0-0.8) 10^3/ul Absolute Eos (auto) (0-0.6) 10^3/ul Absolute Basos (auto) (0-0.2) 10^3/ul Absolute Nucleated RBC 10^3/ul Nucleated RBC % INR (Anticoag Therapy) 1.06 (0.82-1.09) APTT 32.1 (26.0-36.3) seconds Sodium (135-145) mmol/L Potassium (3.5-5.0) mmol/L Chloride (101-111) mmol/L Carbon Dioxide (22-32) mmol/L Anion Gap (2-11) mmol/L BUN (6-24) mg/dL Creatinine (0.67-1.17) mg/dL Est GFR ( Amer) (>60) Est GFR (Non-Af Amer) (>60) BUN/Creatinine Ratio (8-20) Glucose (70-100) mg/dL Lactic Acid (0.5-2.0) mmol/L Calcium (8.6-10.3) mg/dL Total Bilirubin (0.2-1.0) mg/dL AST (13-39) U/L ALT (7-52) U/L Alkaline Phosphatase (34-104) U/L Troponin I (<0.04) ng/mL C-Reactive Protein (<8.01) mg/L B-Natriuretic Peptide 205 H (<=100) pg/mL Total Protein (6.4-8.9) g/dL Albumin (3.2-5.2) g/dL Globulin (2-4) g/dL Albumin/Globulin Ratio (1-3) Lipase (11.0-82.0) U/L Influenza A (Rapid) Negative (Negative) Influenza B (Rapid) Negative (Negative) Result Diagrams: 02/21/19 06:49 02/21/19 06:49 Lab Statement: Any lab studies that have been ordered have been reviewed, and results considered in the medical decision making process. Flu Symptom Course/Dx - Course Course Of Treatment: Pt. presenting with the above complaints. Over all very well appearing. Afebrile. BP intially elevated. Pt. given a dose of tylenol for pain. ECG done at 0630 shows a sinus rhythm of 96bpm, normal axis, no ST elevation or depression. CBC unremarkable. Creatine mildly elevated. CRP elevated in 60's. Negative flu swabs. CXR negative for acute findings per radiology. Pt. given 500cc NSS bolus for likely dehydration. On re-exam pt.'s headache and sxs are moderately improved and he is feeling better. Anxious to go home. Results discussed. Pt. notes he only drank two sips of beer yesterday. Advised to avoid ETOH and increase water intake for the next couple of days. BP normalized prior to dc. Tylenol for discomfort as directed. To f.u with PCP on Saturday and return to ER if sxs change or worsen. Pt. and understand and agree with plan. - Diagnoses Differential Diagnosis/HQI/PQRI: Positive: Bronchitis, Influenza, Pneumonia, Upper Respiratory Infection Provider Diagnoses: Viral syndrome, Dehydration Discharge - Sign-Out/Discharge Documenting (check all that apply): Patient Departure Patient Received Moderate/Deep Sedation with Procedure: No - Discharge Plan Condition: Improved Disposition: HOME Patient Education Materials: Dehydration (ED), Viral Syndrome (ED) Referrals: Jo-Ann Barros [facility] [Primary Care Provider] - Additional Instructions: Schedule a follow up appointment with PCP on Saturday Increase fluids and rest Tylenol for pain as directed Return to ER if symptoms change or worsen - Billing Disposition and Condition Condition: IMPROVED Disposition: Home
[2019-02-21 10:01] VITALS: BP 148/77
== END 2019-02-21 10:01 | disposition home or self-care (01) ==
LOC: ED 06:16
DX: B34.9 Viral infection, unspecified (principal); E86.0 Dehydration; R94.31 Abnormal electrocardiogram [ECG] [EKG]; I25.10 Atherosclerotic heart disease of native coronary artery without angina pectoris; I10 Essential (primary) hypertension; I38 Endocarditis, valve unspecified; E78.00 Pure hypercholesterolemia, unspecified; J45.909 Unspecified asthma, uncomplicated; Z85.46 Personal history of malignant neoplasm of prostate; Z87.891 Personal history of nicotine dependence; Z95.1 Presence of aortocoronary bypass graft
CPT/HCPCS: 36415; 71046; 80053; 83605; 83690; 83880; 84484; 85025; 85610; 85730; 86140; 93005; 96360; 96361; 99283; A9270-GY

== ENCOUNTER 2019-06-28 19:39 | Emergency (ER) | payer MEDICARE ==
[2019-06-28] MEDS ORDERED: NS 0.9% 1000 ML** 1,000 ML IV ONE ×2 (19:52→21:31)
[2019-06-28 20:35] LABS: ABS Eosinophils 0.2 10^3/ul (0-0.6); ABS Monocytes 0.5 10^3/ul (0-0.8); ABS Neutrophils 4.6 10^3/ul (1.5-7.7); Eosinophil % 3.1 %; Hematocrit 45 % (42-52); Hemoglobin 15.3 g/dL (14.0-18.0); Lymphocyte % 26.8 %; Mean Corpuscular HGB Conc 34 g/dL (31-36); Mean Corpuscular Hemoglobin 32 pg (27-31); Mean Corpuscular Volume 93 fL (80-94); Mean Platelet Volume 8.7 fL (7.4-10.4); Nucleated Red Blood Cells % 0.1; Platelet Count 158 10^3/uL (150-450); Red Cell Distribution Width 14 % (10-15); White Blood Count 7.3 10^3/uL (3.5-10.8)
[2019-06-28 20:53] LABS: Albumin 4.4 g/dL (3.2-5.2); Albumin/Globulin Ratio 1.7 (1-3); BUN/Creatinine Ratio 20.3 (8-20); C Reactive Protein 1.35 mg/L (<8.01); EGFR African American 57.6 (>60); EGFR Non-African American 47.6 (>60); Globulin 2.6 g/dL (2-4); Total Bilirubin 0.5 mg/dL (0.2-1.0)
[2019-06-28 21:29] LABS: Potassium 4.2 mmol/L (3.5-5.0)
--- NOTE | 2019-06-28 21:33 | ED ---
Abdominal Pain/Male - HPI Summary HPI Summary: Patient complains of lower bilateral abdominal pain radiating to left flank starting last night. Pain described as constant, worse with nothing, increased with change in position. Pain at worst rated 10/10. History of 3 bowel movements today. Patient states pain somewhat relieved with urination. Associated nausea. Pepcid provided no relief. Denies fever, cough, sore throat , CP, SOB, V/D, change in BM, penile or testicular symptoms. Medical history includes quadruple bypass 8 years ago, she daily stage III, gastric ulcers, HTN , CAD, gout. Abdominal surgical history includes cholecystectomy 2 years ago, prostatectomy 23 years ago. - History of Current Complaint Chief Complaint: EDAbdPain Stated Complaint: ABD/BACK PAIN PER PT Time Seen by Provider: 06/28/19 21:15 Hx Obtained From: Patient Onset/Duration: Sudden Onset, Lasting Hours Timing: Constant Severity Initially: Severe Severity Currently: Severe Pain Intensity: 10 Pain Scale Used: 0-10 Numeric Location: Discrete At: RLQ, Discrete At: LLQ, Suprapubic Radiates to: Flank Character: Sharp, Cramping Aggravating Factor(s): Nothing Alleviating Factor(s): Position Associated Signs And Symptoms: Positive: Nausea - Allergies/Home Medications Allergies/Adverse Reactions: Allergies Allergy/AdvReac Type Severity Reaction Status Date / Time No Known Allergies Allergy Verified 02/21/19 06:22 Home Medications: Home Medications Ascorbic Acid TAB* [Vitamin C TAB*] 250 mg PO DAILY 06/28/19 [History Confirmed 06/28/19] Ferrous Sulfate TAB* 1 tab PO DAILY 06/28/19 [History Confirmed 06/28/19] PMH/Surg Hx/FS Hx/Imm Hx Endocrine/Hematology History: Denies: Hx Anticoagulant Therapy - ASA daily, Hx Blood Disorders Cardiovascular History: Reports: Hx Angina, Hx Coronary Artery Disease, Hx Hypercholesterolemia, Hx Hypertension, Hx Valvular Heart Disease - "LEAKY VALVE ", Other Cardiovascular Problems/Disorders - HIGH CHOLESTEROL Respiratory History: Reports: Hx Asthma, Hx Chronic Bronchitis, Hx Seasonal Allergies Comment Only: Other Respiratory Problems/Disorders - PROSTATE CA GI History: Reports: Hx Gall Bladder Disease - pt states it was from an infection from surgery, Hx Gastrointestinal Bleed - current diagnosis, Other GI Disorders - pud History: Reports: Other Problems/Disorders - PROSTATE CA Musculoskeletal History: Reports: Hx Arthritis - bilat feet, Other Musculoskeletal History - RIGHT FOOT TRAUMA Sensory History: Reports: Hx Cataracts, Hx Contacts or Glasses Denies: Hx Glaucoma, Hx Hearing Aid Opthamlomology History: Reports: Hx Cataracts, Hx Contacts or Glasses Denies: Hx Glaucoma Neurological History: Reports: Other Neuro Impairments/Disorders - NUMBNESS LEGS BILAT r/t R FOOT SURGERY YRS AGO Psychiatric History: Denies: Hx Autism - Cancer History Cancer Type, Location and Year: Prostate Hx Chemotherapy: No - Surgical History Surgery Procedure, Year, and Place: 17 YRS AGO, RADICAL PROSTATECTOMY- [facility] [place]. 1976 LEFT INGUINAL HERNIA- [facility]. 39 YRS AGO, 7 COMPOUND FX IN RIGHT FOOT, SURG X 2 WITH SKIN GRAFTS- [facility]. 2009 QUADRUPLE BYPASS- [facility] Anesthesia Reactions: No Infectious Disease History: No Infectious Disease History: Denies: Traveled Outside the [place] in Last 30 Days - Family History Known Family History: Positive: None, Cardiac Disease, Hypertension, Other - CVA to father - Social History Alcohol Use: Daily Alcohol Amount: 3 beverages/day Hx Substance Use: No Substance Use Type: Reports: None Hx Tobacco Use: No Smoking Status (MU): Former Smoker Review of Systems Constitutional: Negative Eyes: Negative ENT: Negative Cardiovascular: Negative Respiratory: Negative Positive: Abdominal Pain, Nausea Genitourinary: Negative Musculoskeletal: Negative Skin: Negative Neurological: Negative Psychological: Normal All Other Systems Reviewed And Are Negative: Yes Physical Exam - Summary Physical Exam Summary: Abdomen nontender to palpation, soft. No CVA tenderness bilaterally. Triage Information Reviewed: Yes Vital Signs On Initial Exam: Initial Vitals Temp Pulse Resp BP Pulse Ox 97.5 F 72 18 215/104 97 06/28/19 19:40 06/28/19 19:40 06/28/19 19:40 06/28/19 19:40 06/28/19 19:40 Vital Signs Reviewed: Yes Appearance: Positive: Well-Appearing Skin: Positive: Warm Head/Face: Positive: Normal Head/Face Inspection Eyes: Positive: Normal Neck: Positive: Supple Respiratory/Lung Sounds: Positive: Clear to Auscultation Cardiovascular: Positive: Normal Abdomen Description: Positive: Nontender Musculoskeletal: Positive: Normal Neurological: Positive: Normal Psychiatric: Positive: Normal AVPU Assessment: Alert - Tamar Coma Scale Best Eye Response: 4 - Spontaneous Best Motor Response: 6 - Obeys Commands Best Verbal Response: 5 - Oriented Coma Scale Total: 15 Diagnostics - Vital Signs Vital Signs Temp Pulse Resp BP Pulse Ox 06/28/19 19:40 97.5 F 72 18 215/104 97 - Laboratory Lab Results: Lab Results 06/28/19 06/28/19 06/28/19 Range/Units 20:23 20:28 20:28 WBC 7.3 (3.5-10.8) 10^3/uL RBC 4.80 (4.18-5.48) 10^6 /uL Hgb 15.3 (14.0-18.0) g/dL Hct 45 (42-52) % MCV 93 (80-94) fL MCH 32 H (27-31) pg MCHC 34 (31-36) g/dL RDW 14 (10-15) % Plt Count 158 (150-450) 10^3/uL MPV 8.7 (7.4-10.4) fL Neut % (Auto) 63.3 % Lymph % (Auto) 26.8 % [place] % (Auto) 6.4 % Eos % (Auto) 3.1 % Baso % (Auto) 0.4 % Absolute Neuts (auto) 4.6 (1.5-7.7) 10^3/ul Absolute Lymphs (auto) 2.0 (1.0-4.8) 10^3/ul Absolute Monos (auto) 0.5 (0-0.8) 10^3/ul Absolute Eos (auto) 0.2 (0-0.6) 10^3/ul Absolute Basos (auto) 0.0 (0-0.2) 10^3/ul Absolute Nucleated RBC 0.0 10^3/ul Nucleated RBC % 0.1 Sodium 137 (135-145) mmol/L Potassium 4.2 (3.5-5.0) mmol/L Chloride 104 (101-111) mmol/L Carbon Dioxide 25 (22-32) mmol/L Anion Gap 8 (2-11) mmol/L BUN 29 H (6-24) mg/dL Creatinine 1.43 H (0.67-1.17) mg/dL Est GFR ( Amer) 57.6 (>60) Est GFR (Non-Af Amer) 47.6 (>60) BUN/Creatinine Ratio 20.3 H (8-20) Glucose 107 H (70-100) mg/dL Lactic Acid 2.0 (0.5-2.0) mmol/L Calcium 9.0 (8.6-10.3) mg/dL Total Bilirubin 0.50 (0.2-1.0) mg/dL AST 22 (13-39) U/L ALT 21 (7-52) U/L Alkaline Phosphatase 74 (34-104) U/L C-Reactive Protein 1.35 (<8.01) mg/L Total Protein 7.0 (6.4-8.9) g/dL Albumin 4.4 (3.2-5.2) g/dL Globulin 2.6 (2-4) g/dL Albumin/Globulin Ratio 1.7 (1-3) Lipase 31 (11.0-82.0) U/L Result Diagrams: 06/28/19 20:23 06/28/19 20:28 Lab Statement: Any lab studies that have been ordered have been reviewed, and results considered in the medical decision making process. Abdominal Pain Male Course/Dx - Course Course Of Treatment: Patient complains of lower bilateral abdominal pain radiating to left flank starting last night. Pain described as constant, worse with nothing, increased with change in position. Pain at worst rated 10/10. History of 3 bowel movements today. Patient states pain somewhat relieved with urination. Associated nausea. Pepcid provided no relief. Denies fever, cough , sore throat, CP, SOB, V/D, change in BM, penile or testicular symptoms. Medical history includes quadruple bypass 8 years ago, she daily stage III, gastric ulcers, HTN, CAD, gout. Abdominal surgical history includes cholecystectomy 2 years ago, prostatectomy 23 years ago. BP elevated, however patient states he has white coat syndrome. States he monitors blood pressure at home, use SBP average 130s. Patient compliant with BP meds. Patient advised to continue monitoring BP at home and to follow-up with primary care area if elevated. Other Vital signs within normal limits. Creatinine 1.43 at baseline. 2L Normal saline given. Labs otherwise unremarkable. Urine positive for RBC. CT of abdomen and pelvis positive for 2 mm left side kidney stone. Pain control and follow-up with urology. - Diagnoses Provider Diagnoses: Kidney stone on left side Discharge ED - Sign-Out/Discharge Documenting (check all that apply): Patient Departure Patient Received Moderate/Deep Sedation with Procedure: No - Discharge Plan Condition: Stable Disposition: HOME Prescriptions: Oxycodone HCl 5 mg PO Q6H 3 Days #12 tablet MDD 3 tABS Patient Education Materials: Kidney Stones (ED) Referrals: Jo-Ann Barros NP [Primary Care Provider] - Lizandro Triana MD [Medical Doctor] - Additional Instructions: Take pain medication as directed if needed for pain. Drink plenty of fluids to help flush stone. Follow-up with [facility] [place] for further evaluation. - Billing Disposition and Condition Condition: STABLE Disposition: Home
[2019-06-28] MEDS ORDERED: Ondansetron INJ* 2 MG/ML VIAL IV ONE (21:59)
[2019-06-28] MEDS ORDERED: Morphine 4 MG/ML VIAL (1 ml) 4 MG/ML VIAL IV ONE (21:59)
[2019-06-28] MEDS ORDERED: Iodixanol* (CONTRAST) 320 MG/ML 100 ML SDV IV ONE (23:18)
[2019-06-28 23:23] LABS: Urine Appearance Clear; Urine Bacteria Absent (Absent); Urine Bilirubin Negative (Negative); Urine Blood 2+ (Negative); Urine Color Straw; Urine Glucose Negative (Negative); Urine Ketones Trace (Negative); Urine Nitrite Negative (Negative); Urine Protein Negative (Negative); Urine Red Blood Cell 3+(>10/hpf) (Absent); Urine Specific Gravity 1.009 (1.010-1.030); Urine Urobilinogen Negative (Negative); Urine White Blood Cell Trace(0-5/hpf) (Absent)
[2019-06-29] MEDS ORDERED: oxyCODONE TAB* 5 MG TAB PO ONE (00:53)
[2019-06-29 01:11] VITALS: BP 193/118
== END 2019-06-29 01:10 | disposition home or self-care (01) ==
LOC: ED 19:39
DX: N13.2 Hydronephrosis with renal and ureteral calculous obstruction (principal); N28.1 Cyst of kidney, acquired; J98.11 Atelectasis; M47.816 Spondylosis without myelopathy or radiculopathy, lumbar region; R11.0 Nausea; I25.119 Atherosclerotic heart disease of native coronary artery with unspecified angina pectoris; I10 Essential (primary) hypertension; Z79.82 Long term (current) use of aspirin; Z95.1 Presence of aortocoronary bypass graft; Z90.79 Acquired absence of other genital organ(s); Z90.49 Acquired absence of other specified parts of digestive tract; K57.30 Diverticulosis of large intestine without perforation or abscess without bleeding; Z87.891 Personal history of nicotine dependence
CPT/HCPCS: 36415; 74177; 80053; 81003; 81015; 83605; 83690; 85025; 86140; 87086; 93005; 96361; 96374; 96375; 99283; A9270-GY; J2270; J2405; Q9967